=== PATIENT | female | born 1990 | race African-American/Black ===

== ENCOUNTER 2016-07-23 22:18 | Emergency (ER) | payer OTHER ==
[2016-07-23 22:39] LABS: #Basophils 0.1 thou/uL (0.0-0.2); #Lymphocytes 2.4 thou/uL (1.20-3.40); #Monocytes 0.2 thou/uL (0.11-0.59); #Neutrophils 6.3 thou/uL (1.40-6.50); %Lymphocytes 26.8 % (21.0-51.0); %Monocytes 2.1 % (0.0-10.0); Hematocrit 45.7 % (36.0-47.0); Mean Platelet Volume 7.9 fL (7.4-10.4); Red Blood Cell (RBC) Count 4.72 mill/uL (4.20-5.40); White Blood Cell (WBC) Count 8.9 thou/uL (4.8-10.8)
[2016-07-23] MEDS ORDERED: Lorazepam 2 MG/ML VIAL ONE (22:39)
[2016-07-23] MEDS ORDERED: Famotidine 20 MG TAB ONE (22:39)
[2016-07-23] MEDS ORDERED: Ketorolac Tromethamine 30 MG/ML VIAL ONE (22:39)
[2016-07-23] MEDS ORDERED: Ondansetron HCl/PF 4 MG/2 ML Vial ONE (22:39)
[2016-07-23] MEDS ORDERED: Famotidine/PF 20 mg/2ml Vial ONE (22:40)
[2016-07-23 22:45] LABS: Neutrophil 70 % (42-75)
[2016-07-23 23:00] LABS: ALT (SGPT) 18 U/L (0-55); AST (SGOT) 23 U/L (5-34); Alkaline Phosphatase 89 U/L (40-150); Amylase 60 U/L (25-125); Anion Gap 17 mmol/L (10-20); BUN (Urea Nitrogen) 7 mg/dL (7.0-18.7); Bilirubin, Total 0.2 mg/dL (0.2-1.2); Calc. Creatinine Clearance 0 mL/min (70-130); Calcium 10.5 mg/dL (7.8-10.44); Carbon Dioxide 23 mmol/L (22-29); Chloride 106 mmol/L (98-107); Estimated GFR-MDRD 90; Globulin 3.7 g/dL (2.4-3.5); Protein, Total 8.6 g/dL (6.0-8.3)
[2016-07-23 23:31] LABS: Bilirubin Negative (Negative); Blood, Urine Negative (Negative); Glucose, Urine (Dipstick) Negative (Negative); Ketone, Urine Negative (Negative); Nitrite Negative (Negative); Protein, Urine (Dipstick) 30 mg/dL (Neg-Trace); Urobilinogen 0.2 mg/dL (0.2-1.0)
[2016-07-23 23:32] LABS: Bacteria/HPF None Seen HPF (None Seen); RBC/HPF None Seen HPF (0-3); WBC/HPF None Seen HPF (0-3)
[2016-07-23 23:39] LABS: Methadone Not Detected (NotDetected); Methamphetamine Not Detected (NotDetected)
--- NOTE | 2016-07-24 00:11 | ERRECORD ---
[facility] EMERGENCY RECORD HPI NAUSEA/VOMITING/DIARRHEA (22:34 RW) CHIEF COMPLAINT: Patient presents for evaluation of nausea, Patient presents for evaluation of vomiting. HISTORIAN: History provided by patient. LOCATION FEMALE: No localizing symptoms. QUALITY: Unable to describe the quality of the pain. SEVERITY: Maximum severity of symptoms mild, Currently symptoms are mild, Maximum severity of pain rated as 9/10, Current severity of pain rated as 9/10. TIME COURSE: Patient unable to describe onset of symptoms, There has been no change in the patient's symptoms over time. ASSOCIATED WITH FEMALE: Associated with vomiting. EXACERBATED BY: Patient's condition exacerbated by nothing. RELIEVED BY: Patient's condition relieved by nothing. E/M CAVEAT: Emergency room caveat invoked due to, possible drug abuse. ROS (22:36 RW) CONSTITUTIONAL: Negative constitutional review of systems. EYES: Negative eye review of systems. ENT: Negative ears, nose, throat review of systems. CARDIOVASCULAR: Negative cardiovascular review of systems. RESPIRATORY: Negative respiratory review of systems. GI: Negative gastrointestinal review of systems. GENITOURINARY FEMALE: Negative genitourinary review of systems. MUSCULOSKELETAL: Negative musculoskeletal review of systems. SKIN: Negative skin review of systems. NEUROLOGIC: Negative neurologic review of systems. ENDOCRINE: Negative endocrine review of systems. HEMO/LYMPHATIC: Normal hematologic/lymphatic system review. ALLERGIC/IMMUNOLOGIC: Normal allergy/immunologic system review. PSYCHIATRIC: Negative psychiatric review of systems. NOTES: All systems reviewed, negative except as described above. PAST MEDICAL HISTORY (22:58 [facility]) MEDICAL HISTORY: Flu vaccine not up to date, Tetanus not up to date, Past medical history includes gastrointestinal disease, chronic constipation. Reviewed 07/23/15. FEMALE SURGICAL HISTORY: Surgical history of appendectomy. Reviewed 07/23/15. PSYCHIATRIC HISTORY: No previous psychiatric history. SOCIAL HISTORY: Social History includes lives with small child, Patient drinks socially, rarely, Patient denies drug use, Patient currently uses tobacco. FAMILY HISTORY: Family history is non-contributory to this case. KNOWN ALLERGIES Ultram: Reaction: Nausea, - states"blows up" &a-1R&a+25V*p+0X*x1477B*c202B*c15G*c2P*p-0X&a-25V&a+1R Name: Radha Prieto : 1990 F26 MedRec: [id number] AcctNum: [id number] Prepared: Tiff Jul 24, 2016 06:37 by Interface Page [address] [facility] EMERGENCY RECORD CURRENT MEDICATIONS (23:59 BHAS) None VITAL SIGNS VITAL SIGNS: BP: 191/80, Pulse: 87, Resp: 20, Pain: 9, O2 sat: 96 on Room Air, Time: 07/23/2016 22:22. (22:22 BHAS) Temp: 97.8 (Oral), Time: 07/23/2016 22:22. (22:22 BHAS) BP: 137/84, Pulse: 64, Resp: 18 (Non-Labored), O2 sat: 100 on Room Air, Time: 07/23/2016 22:50. (22:50 BHAS) Pain: 2, Time: 07/23/2016 23:15. (23:15 [facility]AS) BP: 128/76, Pulse: 67, Resp: 18 (Non-Labored), Temp: 98.2 (Oral), Pain: 0, O2 sat: 98 on Room Air, Time: 07/23/2016 23:30. (23:30 [facility]AS) PHYSICAL EXAM (22:36 RWAG) CONSTITUTIONAL: Vital signs reviewed, Blood pressure, hypertensive. HEAD: Head exam normal. EYES: Eye exam normal. ENT: ENT exam normal. NECK: Neck exam normal. RESPIRATORY CHEST: Respiratory and chest exam normal. CARDIOVASCULAR: Cardiovascular assessment normal. ABDOMEN FEMALE: Abdominal exam normal. BACK: Back exam normal. UPPER EXTREMITY: Upper extremity exam normal. LOWER EXTREMITY: Lower extremity exam normal. NEURO: Neuro exam normal. SKIN: Skin exam normal. LYMPHATIC: Lymphatic exam normal. PSYCHIATRIC: Psychiatric exam normal. MEDICATION ADMINISTRATION SUMMARY Drug Name: ketorolac injection, Dose Ordered: 30 mg, Route: IV Push, Status: Given, Time: 22:48 07/23/2016, Drug Name: Ativan injection, Dose Ordered: 2 mg, Route: IV Push, Status: Given, Time: 22:48 07/23/2016, Drug Name: ondansetron HCl intravenous, Dose Ordered: 8 mg, Route: IV Push, Status: Given, Time: 22:48 07/23/2016, Drug Name: famotidine (PF), Dose Ordered: 20 mg, Route: IV Push, Status: Given, Time: 22:48 07/23/2016, Detailed record available in Medication Service section. PROBLEM LIST No recorded problems DIAGNOSIS (23:50 RWAG) FINAL: PRIMARY: Nausea with vomiting. &a-1R&a+25V*p+0X*s0571C*c202B*c15G*c2P*p-0X&a-25V&a+1R Name: Radha Prieto : 1990 6 MedRec: [id number] AcctNum: [id number] Prepared: Tiff Jul 24, 2016 06:37 by Interface Page [address] [facility] EMERGENCY RECORD PRESCRIPTION (23:50 RWAG) Zofran ODT: TABLET,DISINTEGRATING : 8 mg : ORAL : Quantity: 1 Unit: tab(s) Route: ORAL Schedule: every 8 hours PRN Dispense: 10 Unit: tab(s) May substitute. Refills: No Refills . NOTES: No Refills. DISPOSITION PATIENT: Disposition Type: Discharge, Disposition: *Discharge Home, Disposition Transport: Car, Condition: Improved. (23:50 RWAG) Patient left the department. (Tiff Jul 24, 2016 00:04 [facility]) Shi: JOSE RAUL=BRADLEY Solis, Cameron RWAG=MD Zay, Willie &a-1R&a+25V*p+0X*n4720V*c202B*c15G*c2P*p-0X&a-25V&a+1R Name: Tony Prietoaleja Jensen : 1990 F26 MedRec: [id number] AcctNum: [id number] Prepared: Tiff Jul 24, 2016 06:37 by Interface Page 3 of 3 pMD MTDD
--- NOTE | 2016-07-24 00:20 | PICIS ---
[facility] EMERGENCY RECORD TRIAGE ([facility] Jul 23, 2016 22:24 BHAS) TRIAGE NOTES: N/V x 3 days with right sided abd pain/cramping. Actively vomiting upon arrival. ([facility] Jul 23, 2016 22:24 BHAS) PATIENT: NAME: Radha Prieto, AGE: 26, GENDER: female, : Mon1990, TIME OF GREET: Sat Jul 23, 2016 22:19, PREFERRED LANGUAGE: Italian, ETHNICITY: Not or , ECODE BILLING MAP: [facility] ER, SSN: [id number], Zip Code: [address], KG WEIGHT: 70.31, PHONE: , , , PERSON ID: [id number]. ([facility] Jul 23, 2016 22:24 BHAS) COMPLAINT: ABD PAIN; VOMITING. ([facility] Jul 23, 2016 22:24 BHAS) ADMISSION: URGENCY: 3 Urgent, ADMISSION SOURCE: Home, TRANSPORT: Walk-in, BED: ER -04. ([facility] Jul 23, 2016 22:24 BHAS) ASSESSMENT: Assessment: Pt c/o abd pain x 2 days with N/V., Symptoms began 07/21/2016 22:57. (22:58 BHAS) PAIN: Patient complains of pain described as, aching, on a scale 0-10 patient rates pain as 9, Location lower abd. (22:58 BHAS) TRIAGE SCREENING: Patient denies suicidal ideation, Patient denies presence of domestic violence. (22:58 AS) PROVIDERS: TRIAGE NURSE: Cameron Solis RN. ([facility] Jul 23, 2016 22:24 BHAS) VITAL SIGNS: BP 191/80, Pulse 87, Resp 20, Pain 9, O2 Sat 96, on Room Air, Time 07/23/2016 22:22. (22:22 BHAS) PREVIOUS VISIT ALLERGIES: Ultram. (Sat Jul 23, 2016 22:24 BHAS) Ultram. (22:58 BHAS) KNOWN ALLERGIES Ultram: Reaction: Nausea, - states"blows up" CURRENT MEDICATIONS (23:59 BHAS) None VITAL SIGNS VITAL SIGNS: BP: 191/80, Pulse: 87, Resp: 20, Pain: 9, O2 sat: 96 on Room Air, Time: 07/23/2016 22:22. (22:22 BHAS) Temp: 97.8 (Oral), Time: 07/23/2016 22:22. (22:22 BHAS) BP: 137/84, Pulse: 64, Resp: 18 (Non-Labored), O2 sat: 100 on Room Air, Time: 07/23/2016 22:50. (22:50 BHAS) Pain: 2, Time: 07/23/2016 23:15. (23:15 BHAS) BP: 128/76, Pulse: 67, Resp: 18 (Non-Labored), Temp: 98.2 (Oral), Pain: 0, O2 sat: 98 on Room Air, Time: 07/23/2016 23:30. (23:30 BHAS) NURSING ASSESSMENT: ABDOMEN (22:25 BHAS) CONSTITUTIONAL: Patient arrives ambulatory, Gait steady, History obtained from patient, Patient appears, in distress due to pain, restless, uncomfortable, Patient cooperative, Patient alert, Oriented to person, place and time, Skin warm, Skin dry, Skin normal in color, Mucous membranes pink, Mucous &a-1R&a+25V*p+0X*y4025Y*c202B*c15G*c2P*p-0X&a-25V&a+1R Name: Radha Prieto : 1990 F26 MedRec: [id number] AcctNum: [id number] Prepared: Tiff Jul 24, 2016 06:43 by Interface Page [address] [facility] EMERGENCY RECORD membranes moist, Patient is well-groomed, Patient complains of Abd pain; N/V, Pt c/o lower abd pain/cramping x 2 days along with N/V. Pt actively vomiting upon arrival. Pt very restless, difficulty keeping still during initial assessment. Family at bedside. PAIN: aching pain, cramping pain, to the left lower quadrant, to the right lower quadrant, Onset of pain 07/21/2016 23:01, on a scale 0-10 patient rates pain as 9. ABDOMEN: Abdomen assessment findings include abdomen symmetrical, Abdomen soft, tender, no pulsatile mass, no dullness with percussion, no resonance with percussion, Bowel sound normal, Associated with nausea, Associated with vomiting, currently, no associated diarrhea, no associated constipation, no associated weight change, no associated appetite change. LMP: First day last menstrual period, Last period started on 06/23/2016 23:01, Patient denies . GENITOURINARY FEMALE: Female genitourinary assessment findings include external genitalia normal. SAFETY: Side rails up, Cart/Stretcher in lowest position, Family at bedside, Call light within reach, Hospital ID band on. NURSING PROCEDURE: DISCHARGE NOTE ([place] Jul 24, 2016 00:00 BHAS) DISCHARGE: Patient discharged to home, ambulating without assistance, family driving, accompanied by //partner, Summary of Care printed/ provided, Transition record given to patient, Discharge instructions given to patient, Simple or moderate discharge teaching performed, by BRADLEY Barnes, Prescriptions given and instructions on side effects given, Above person(s) verbalized understanding of discharge instructions and follow-up care, Patient discharged by, BRADLEY Barnes, Patient treated and evaluated by physician, Notes: Pt's partner at bedside signed DC instructions stating that he is driving pt. BELONGINGS: Belongings and valuables with patient upon arrival to the Emergency Department include:, Belongings and valuables with patient at time of discharge include:, Belongings remain with patient, Valuables remain with patient. SAFETY: Side rails up, Cart/Stretcher in lowest position, Family at bedside, Call light within reach, Hospital ID band on. NURSING PROCEDURE: IV PATIENT IDENITIFIER: Patient actively involved in identification process, Patient's identity verified by patient stating name, Patient's identity verified by hospital ID bracelet. (22:45 AS) Patient actively involved in identification process, Patient's identity verified by patient stating name, Patient's identity verified by hospital ID bracelet. (23:59 [facility]) IV SITE 1: IV established, to the left antecubital, using a 20 gauge catheter, in one attempt, Saline lock established, Flushed with normal saline (mls): 10, Labs drawn at time of placement, labeled in &a-1R&a+25V*p+0X*c2294C*c202B*c15G*c2P*p-0X&a-25V&a+1R Name: Radha Prieto : 1990 F26 MedRec: [id number] AcctNum: [id number] Prepared: Tiff Jul 24, 2016 06:43 by Interface Page [address] [facility] EMERGENCY RECORD the presence of the patient and sent to lab. (22:45 BHAS) FOLLOW-UP SITE 1: After procedure, sterile dressing applied. (22:45 BHAS) After procedure, sterile dressing applied, IV discontinued, due to patient being discharged, catheter intact. (23:59 BHAS) SAFETY: Side rails up, Cart/Stretcher in lowest position, Family at bedside, Call light within reach, Hospital ID band on. (22:45 BHAS) NURSING PROCEDURE: NURSE NOTES NURSES NOTES: Notes: Given pt cup of water for PO challenge. Pt able to drink majority of water without difficulty; tolerated well. Denies N/V at this time. (23:30 BHAS) Notes: Pt states that pain has subsided at this time. (23:15 BHAS) NURSING PROCEDURE: URINE COLLECTION (23:20 BHAS) PATIENT IDENTIFIER: Patient actively involved in identification process, Patient's identity verified by patient stating name, Patient's identity verified by hospital ID bracelet. URINE COLLECTION FEMALE: Urine collected by mid-stream clean catch, Output amount (mL) 60, urine yellow in color, and clear, Specimen labeled in the presence of the patient and sent to lab, Specimen obtained for culture labeled in the presence of the patient and sent to lab. SAFETY: Side rails up, Cart/Stretcher in lowest position, Family at bedside, Call light within reach, Hospital ID band on. ORDER DETAILS Order Name: Alcohol, Status: Active, Time: 22:32 07/23/2016, User: MUNA, - Ordered for: MD Collazo Richard, - Entered by: MD Collazo Richard - Sat Jul 23, 2016 22:32, - Quantity: 1, Order Name: Amylase, Status: Active, Time: 22:31 07/23/2016, User: MUNA, - Ordered for: MD Collazo Richard, - Entered by: MD Collazo Richard - Sat Jul 23, 2016 22:31, - Quantity: 1, Order Name: CBC with Differential, Status: Active, Time: 22:31 07/23/2016, User: MUNA, - Ordered for: MD Collazo Richard, - Entered by: MD Collazo Richard - Sat Jul 23, 2016 22:31, - Quantity: 1, Order Name: Comprehensive Metabolic Panel, Status: Active, Time: 22:31 07/23/2016, User: MUNA, - Ordered for: MD Collazo Richard, - Entered by: MD Collazo Richard - Sat Jul 23, 2016 22:31, - Quantity: 1, &a-1R&a+25V*p+0X*v2729M*c202B*c15G*c2P*p-0X&a-25V&a+1R Name: Radha Prieto : 1990 F26 MedRec: [id number] AcctNum: [id number] Prepared: Tiff Jul 24, 2016 06:43 by Interface Page [address] [facility] EMERGENCY RECORD Order Name: Drug Screen, Urine, Status: Active, Time: 22:32 07/23/2016, User: MUNA, - Ordered for: MD Collazo Richard, - Entered by: MD Collazo Richard - Sat Jul 23, 2016 22:32, - Quantity: 1, Order Name: Test, Urine (BHCG), Status: Active, Time: 22:31 07/23/2016, User: MUNA, - Ordered for: MD Collazo Richard, - Entered by: MD Collazo Richard - Sat Jul 23, 2016 22:31, - Quantity: 1, Order Name: SALINE LOCK, Status: Done, Time: 22:58 07/23/2016, User: [facility], - Ordered for: MD Collazo Richard, - Entered by: MD Collazo Richard - Sat Jul 23, 2016 22:31, - Quantity: 1, Order Name: Urinalysis with Microscopic, Status: Active, Time: 22:31 07/23/2016, User: MUNA, - Ordered for: MD Collazo Richard, - Entered by: MD Collazo Richard - Sat Jul 23, 2016 22:31, - Quantity: 1. MEDICATION ADMINISTRATION SUMMARY Drug Name: ketorolac injection, Dose Ordered: 30 mg, Route: IV Push, Status: Given, Time: 22:48 07/23/2016, Drug Name: Ativan injection, Dose Ordered: 2 mg, Route: IV Push, Status: Given, Time: 22:48 07/23/2016, Drug Name: ondansetron HCl intravenous, Dose Ordered: 8 mg, Route: IV Push, Status: Given, Time: 22:48 07/23/2016, Drug Name: famotidine (PF), Dose Ordered: 20 mg, Route: IV Push, Status: Given, Time: 22:48 07/23/2016, Detailed record available in Medication Service section. MEDICATION SERVICE (22:48 [facility]) Ativan injection: Order: Ativan injection (lorazepam) - Dose: 2 mg : IV Push Schedule: Now Ordered by: Willie Collazo MD Entered by: Willie Collazo MD Sat Jul 23, 2016 22:34 , Acknowledged by: Cameron Solis RN Sat Jul 23, 2016 22:38 Documented as given by: Cameron Solis RN Sat Jul 23, 2016 22:48 Patient, Medication, Dose, Route and Time verified prior to administration. Verbal order read back and verified, Amount given: 2mg, IV SITE #1 IVP, initial medication, Slowly, Awake and alert- acceptable, Catheter placement confirmed via flush prior to administration, IV site without signs or symptoms of infiltration during medication administration, No swelling during administration, No drainage during administration, IV flushed after administration, Correct patient, time, route, dose and medication confirmed prior to administration, &a-1R&a+25V*p+0X*n0847Q*c202B*c15G*c2P*p-0X&a-25V&a+1R Name: Radha Prieto : 1990 F26 MedRec: [id number] AcctNum: [id number] Prepared: Tiff Jul 24, 2016 06:43 by Interface Page [address] [facility] EMERGENCY RECORD Patient advised of actions and side-effects prior to administration, Allergies confirmed and medications reviewed prior to administration, Patient tolerated procedure well, Patient in position of comfort, Side rails up, Cart in lowest position, Family at bedside. famotidine (PF): Order: famotidine (PF) (famotidine/preservative free) - Dose: 20 mg : IV Push Schedule: Now Ordered by: Willie Collazo MD Entered by: Willie Collazo MD Sat Jul 23, 2016 22:33 , Acknowledged by: Cameron Solis RN Sat Jul 23, 2016 22:38 Documented as given by: Cameron Solis RN Sat Jul 23, 2016 22:48 Patient, Medication, Dose, Route and Time verified prior to administration. Amount given: 20mg, IV SITE #1 IVP, subsequent different medication, Slowly, Catheter placement confirmed via flush prior to administration, IV site without signs or symptoms of infiltration during medication administration, No swelling during administration, No drainage during administration, IV flushed after administration, Correct patient, time, route, dose and medication confirmed prior to administration, Patient advised of actions and side-effects prior to administration, Allergies confirmed and medications reviewed prior to administration, Patient tolerated procedure well, Patient in position of comfort, Side rails up, Cart in lowest position, Family at bedside. ketorolac injection: Order: ketorolac injection (ketorolac tromethamine) - Dose: 30 mg : IV Push Schedule: Now Ordered by: Willie Collazo MD Entered by: Willie Collazo MD Sat Jul 23, 2016 22:33 , Acknowledged by: Cmaeron Solis RN Sat Jul 23, 2016 22:38 Documented as given by: Cameron Solis RN Sat Jul 23, 2016 22:48 Patient, Medication, Dose, Route and Time verified prior to administration. Amount given: 30mg, IV SITE #1 IVP, subsequent different medication, Slowly, Catheter placement confirmed via flush prior to administration, IV site without signs or symptoms of infiltration during medication administration, No swelling during administration, No drainage during administration, IV flushed after administration, Correct patient, time, route, dose and medication confirmed prior to administration, Patient advised of actions and side-effects prior to administration, Allergies confirmed and medications reviewed prior to administration, Patient tolerated procedure well, Patient in position of comfort, Side rails up, Cart in lowest position, Family at bedside. ondansetron HCl intravenous: Order: ondansetron HCl intravenous (ondansetron HCl) - Dose: 8 mg : IV Push Schedule: Now Ordered by: Willie Collazo MD Entered by: Willie Collazo MD Sat Jul 23, 2016 22:33 , Acknowledged by: Cameron Solis RN Sat Jul 23, 2016 22:38 &a-1R&a+25V*p+0X*y4617E*c202B*c15G*c2P*p-0X&a-25V&a+1R Name: Radha Prieto : 1990 F26 MedRec: [id number] AcctNum: [id number] Prepared: Tiff Jul 24, 2016 06:43 by Interface Page [address] [facility] EMERGENCY RECORD Documented as given by: Cameron Solis RN Sat Jul 23, 2016 22:48 Patient, Medication, Dose, Route and Time verified prior to administration. Verbal order read back and verified, Amount given: 8mg, IV SITE #1 IVP, subsequent different medication, Slowly, Catheter placement confirmed via flush prior to administration, IV site without signs or symptoms of infiltration during medication administration, No swelling during administration, No drainage during administration, IV flushed after administration, Correct patient, time, route, dose and medication confirmed prior to administration, Patient advised of actions and side-effects prior to administration, Allergies confirmed and medications reviewed prior to administration, Patient tolerated procedure well, Patient in position of comfort, Side rails up, Cart in lowest position, Family at bedside. HPI NAUSEA/VOMITING/DIARRHEA (22:34 RW) CHIEF COMPLAINT: Patient presents for evaluation of nausea, Patient presents for evaluation of vomiting. HISTORIAN: History provided by patient. LOCATION FEMALE: No localizing symptoms. QUALITY: Unable to describe the quality of the pain. SEVERITY: Maximum severity of symptoms mild, Currently symptoms are mild, Maximum severity of pain rated as 9/10, Current severity of pain rated as 9/10. TIME COURSE: Patient unable to describe onset of symptoms, There has been no change in the patient's symptoms over time. ASSOCIATED WITH FEMALE: Associated with vomiting. EXACERBATED BY: Patient's condition exacerbated by nothing. RELIEVED BY: Patient's condition relieved by nothing. E/M CAVEAT: Emergency room caveat invoked due to, possible drug abuse. ROS (22:36 RWAG) CONSTITUTIONAL: Negative constitutional review of systems. EYES: Negative eye review of systems. ENT: Negative ears, nose, throat review of systems. CARDIOVASCULAR: Negative cardiovascular review of systems. RESPIRATORY: Negative respiratory review of systems. GI: Negative gastrointestinal review of systems. GENITOURINARY FEMALE: Negative genitourinary review of systems. MUSCULOSKELETAL: Negative musculoskeletal review of systems. SKIN: Negative skin review of systems. NEUROLOGIC: Negative neurologic review of systems. ENDOCRINE: Negative endocrine review of systems. HEMO/LYMPHATIC: Normal hematologic/lymphatic system review. ALLERGIC/IMMUNOLOGIC: Normal allergy/immunologic system review. PSYCHIATRIC: Negative psychiatric review of systems. NOTES: All systems reviewed, negative except as described above. &a-1R&a+25V*p+0X*a0393Y*c202B*c15G*c2P*p-0X&a-25V&a+1R Name: Radha Prieto : 1990 F26 MedRec: [id number] AcctNum: [id number] Prepared: Tiff Jul 24, 2016 06:43 by Interface Page [address] [facility] EMERGENCY RECORD PAST MEDICAL HISTORY (22:58 BHAS) MEDICAL HISTORY: Flu vaccine not up to date, Tetanus not up to date, Past medical history includes gastrointestinal disease, chronic constipation. Reviewed 07/23/15. FEMALE SURGICAL HISTORY: Surgical history of appendectomy. Reviewed 07/23/15. PSYCHIATRIC HISTORY: No previous psychiatric history. SOCIAL HISTORY: Social History includes lives with small child, Patient drinks socially, rarely, Patient denies drug use, Patient currently uses tobacco. FAMILY HISTORY: Family history is non-contributory to this case. PHYSICAL EXAM (22:36 RWAG) CONSTITUTIONAL: Vital signs reviewed, Blood pressure, hypertensive. HEAD: Head exam normal. EYES: Eye exam normal. ENT: ENT exam normal. NECK: Neck exam normal. RESPIRATORY CHEST: Respiratory and chest exam normal. CARDIOVASCULAR: Cardiovascular assessment normal. ABDOMEN FEMALE: Abdominal exam normal. BACK: Back exam normal. UPPER EXTREMITY: Upper extremity exam normal. LOWER EXTREMITY: Lower extremity exam normal. NEURO: Neuro exam normal. SKIN: Skin exam normal. LYMPHATIC: Lymphatic exam normal. PSYCHIATRIC: Psychiatric exam normal. EVENTS TRANSFER: Triage to Emergency Emergency Room -04. ([facility] Jul 23, 2016 22:24 BHAS) Removed from Emergency Emergency Room -04. ([place] [place] Jul 24, 2016 00:04 BHAS) PROBLEM LIST No recorded problems DIAGNOSIS (23:50 RWAG) FINAL: PRIMARY: Nausea with vomiting. DISPOSITION PATIENT: Disposition Type: Discharge, Disposition: *Discharge Home, Disposition Transport: Car, Condition: Improved. (23:50 RWAG) Patient left the department. ([place] Jul 24, 2016 00:04 BHAS) INSTRUCTION (23:51 RWAG) DISCHARGE: NAUSEA VOMITING 5YADULT. FOLLOWUP: Follow up with Primary Care Physician in 2-3 days. &a-1R&a+25V*p+0X*z4176D*c202B*c15G*c2P*p-0X&a-25V&a+1R Name: Radha Prieto : 1990 F26 MedRec: [id number] AcctNum: [id number] Prepared: [place] [facility] Jul 24, 2016 06:43 by Interface Page [address] [facility] EMERGENCY RECORD SPECIAL: Follow-up with your PCP. PRESCRIPTION (23:50 RWAG) Zofran ODT: TABLET,DISINTEGRATING : 8 mg : ORAL : Quantity: 1 Unit: tab(s) Route: ORAL Schedule: every 8 hours PRN Dispense: 10 Unit: tab(s) May substitute. Refills: No Refills . NOTES: No Refills. IMAGING ([place] Jul 24, 2016 00:03 [facility]) *DISCHARGE INSTRUCTIONS RECEIPT: Image captured from scanner. *SUPPLY CHARGE SHEET: Image captured from scanner. ADMIN ([facility] Jul 24, 2016 06:33 RW) DIGITAL SIGNATURE: MD Collazo Richard. RESULTS (23:49 RW) LABORATORY: Drug Screen, Urine Collection DT: [facility] Jul 23, 2016 23:27, *THC/Cannabinoid Screen Detected - H , Range (NotDetected), Phencyclidine (PCP) Not Detected , Range (NotDetected), *Cocaine Metabolite Screen Detected - H , Range (NotDetected), Methamphetamine Not Detected , Range (NotDetected), *Opiate Screen Detected - H , Range (NotDetected), Amphetamine Not Detected , Range (NotDetected), Benzodiazepine Screen Not Detected , Range (NotDetected), Tricyclic Screen Not Detected , Range (NotDetected), Methadone Not Detected , Range (NotDetected), Barbiturates Screen Not Detected , Range (NotDetected), Oxycodone Screen Not Detected , Range (NotDetected), Propoxyphene Screen Not Detected , Range (NotDetected), Drug Screen Cutoff , Range (), The [place] Profile-V Panel for Qualitative Drugs of Abuse assays are for, presumptive screening testing only. The drug class and detection limits, are as follows: Drug Class Detection Limit Amphetamine , 500 ng/mL* Barbiturates 200 ng/mL , Benzodiazepines 150 ng/mL* Cocaine 150 ng/mL*, Methamphetamine 500 ng/mL* Methadone 200, ng/mL* Opiates 100 ng/mL* Oxycodone , 100 ng/mL PCP 25 ng/mL Propoxyphene , 300 ng/mL Tricyclic Antidepressants 300 ng/mL Cannabinoids (THC) , 50 ng/mL &a-1R&a+25V*p+0X*n0769H*c202B*c15G*c2P*p-0X&a-25V&a+1R Name: Radha Prieto : 1990 F26 MedRec: [id number] AcctNum: [id number] Prepared: Tiff Jul 24, 2016 06:43 by Interface Page 8 of 11 [facility] EMERGENCY RECORD Tests which yield a presumptive positive result must be , tested using a more specific alternate chemical method in order to obtain, a confirmed analytical result. Additional confirmation and identification, may be ordered on a routine basis, if desired. Presumptive positive urines, are held for two weeks. . Test, Urine (BHCG) Collection DT: [facility] Jul 23, 2016 23:27, Test - Urine (BHCG) NEGATIVE , Range (NEGATIVE), Method of sensitivity- Indeterminant: results should be repeated, after 48 hours. Positive: results may be detected as early as 4-5 days before a first missed menses. Elimination of BHCG-, Elimination following first trimester D&C: 29-44 Days , Elimination following term : 8-24 Days , Specific [place] 1.020 , Range (1.002-1.036), A dilute urine specimen may, not contain employee representative levels of hCG. If is still, suspected, a first morning urine specimen OR a random blood specimen should, be obtained from the patient 48-72 hours later and re-tested. , . Urinalysis with Microscopic Collection DT: [facility] Jul 23, 2016 23:27, Color Yellow , Range (Yellow), Clarity Clear , Range (Clear), Specific [place], Urine 1.020 , Range (1.005-1.030), pH, Urine 8.5 , Range (5.0-9.0), Leukocyte Negative , Range (Negative), Nitrite Negative , Range (Negative), *Protein, Urine (Dipstick) 30 - H mg/dL, Range (Neg-Trace), Glucose, Urine (Dipstick) Negative mg/dL, Range (Negative), Ketone, Urine Negative mg/dL, Range (Negative), Urobilinogen 0.2 mg/dL, Range (0.2-1.0), Bilirubin Negative , Range (Negative), Blood, Urine Negative , Range (Negative), RBC/HPF None Seen HPF, Range (0-3), WBC/HPF None Seen HPF, Range (0-3), *Squamous Epithelial 4-6 - H HPF, Range (0-3), Bacteria/HPF None Seen HPF, Range (None Seen). Alcohol Collection DT: [facility] Jul 23, 2016 22:38, Alcohol Less than 10 mg/dL, Range (Less than 10), The pharmacological response to blood alcohol levels may vary from, individual to individual. &a-1R&a+25V*p+0X*j5004A*c202B*c15G*c2P*p-0X&a-25V&a+1R Name: Radha Prieto : 1990 F26 MedRec: [id number] AcctNum: [id number] Prepared: Tiff Jul 24, 2016 06:43 by Interface Page [address] [facility] EMERGENCY RECORD Negative: Less than 10, mg/dL Toxic: 50 - 100 mg/dL , Depression of LINING [employer]ER: Greater than 100 mg/dL , Fatalities reported: Greater than 400 mg/dL . Amylase Collection DT: [facility] Jul 23, 2016 22:38, Amylase 60 U/L, Range (25-125). Comprehensive Metabolic Panel Collection DT: [facility] Jul 23, 2016 22:38, Sodium 142 mmol/L, Range (136-145), Potassium 4.1 mmol/L, Range (3.5-5.1), Chloride 106 mmol/L, Range (98-107), Carbon Dioxide 23 mmol/L, Range (22-29), Anion Gap 17 mmol/L, Range (10-20), BUN (Urea Nitrogen) 7 mg/dL, Range (7.0-18.7), Creatinine 0.91 mg/dL, Range (0.6-1.1), Estimated GFR-MDRD 90 , Reference Range for Estimated GFR: Greater than 90, mL/min/1.73 m2 NOTE: The MDRD equation has not been validated for use, with the elderly (over 70 years of age), women, patients with, serious comorbid condition or persons with extremes of body size, muscle, mass, or nutritional status. , *Glucose 140 - H mg/dL, Range (70-105), *Calcium 10.5 - H mg/dL, Range (7.8-10.44), Bilirubin, Total 0.2 mg/dL, Range (0.2-1.2), *Protein, Total 8.6 - H g/dL, Range (6.0-8.3), NOTE: Plasma values are generally 0.3 to 0.5 g/dL higher than serum values, due to the presence of fibrinogen. , Albumin 4.9 g/dL, Range (3.5-5.0), *Globulin 3.7 - H g/dL, Range (2.4-3.5), Alb/Glob Ratio 1.3 g/dL, Range (1.2-2.2), Alkaline Phosphatase 89 U/L, Range (40-150), AST (SGOT) 23 U/L, Range (5-34), ALT (SGPT) 18 U/L, Range (0-55). CBC with Differential Collection DT: [facility] Jul 23, 2016 22:38, White Blood Cell (WBC) Count 8.9 thou/uL, Range (4.8-10.8), Red Blood Cell (RBC) Count 4.72 mill/uL, Range (4.20-5.40), Hemoglobin 14.8 g/dL, Range (12.0-16.0), Hematocrit 45.7 %, Range (36.0-47.0), Mean Corpuscular Volume 96.9 fl, Range (81.0-99.0), *Mean Corpuscular Hemoglobin 31.4 - H pg, Range (27.0-31.0), Mean Corpuscular HGB CONC 32.4 g/dL, Range (32.0-36.0), RBC Distribution Width 12.1 %, Range (11.5-14.5), Platelet Count 272 thou/uL, Range (130-400), Mean Platelet Volume 7.9 fL, Range (7.4-10.4), &a-1R&a+25V*p+0X*c5654D*c202B*c15G*c2P*p-0X&a-25V&a+1R Name: Radha Prieto : 1990 F26 MedRec: [id number] AcctNum: [id number] Prepared: Tiff Jul 24, 2016 06:43 by Interface Page [address] [facility] EMERGENCY RECORD %Neutrophils 70.0 %, Range (42.0-75.0), %Lymphocytes 26.8 %, Range (21.0-51.0), %Monocytes 2.1 %, Range (0.0-10.0), %Eosinophils 0.0 %, Range (0.0-10.0), %Basophils 1.0 %, Range (0.0-1.0), #Neutrophils 6.3 thou/uL, Range (1.40-6.50), #Lymphocytes 2.4 thou/uL, Range (1.20-3.40), #Monocytes 0.2 thou/uL, Range (0.11-0.59), #Eosinphils 0.0 thou/uL, Range (0.0-0.7), #Basophils 0.1 thou/uL, Range (0.0-0.2), Neutrophil 70 %, Range (42-75), Lymphocytes 27 %, Range (21-51), Monocytes 2 %, Range (0-10), Basophils 1 %, Range (0-2), PLT Morphology Comment Appears Adequate . Shi: BHJOSE RAUL=BRADLEY Solis, Cameron RWAG=MD Zay, Willie &a-1R&a+25V*p+0X*q6714P*c202B*c15G*c2P*p-0X&a-25V&a+1R Name: Radha Prieto : 1990 F26 MedRec: [id number] AcctNum: [id number] Prepared: Tiff Jul 24, 2016 06:43 by Interface Page 11 of 11 pMD MTDD
== END 2016-07-24 | disposition home or self-care (01) ==
LOC: NAV ERS 22:18
DX: R11.2 Nausea with vomiting, unspecified (principal); Z90.49 Acquired absence of other specified parts of digestive tract
CPT/HCPCS: 36415; 80053; 80307; 81001; 81025; 82150; 85025; 96374; 96375; G0478; G0479; J1885; J2060; J2405; S0028

== ENCOUNTER 2016-07-25 07:54 | Emergency (ER) | payer OTHER ==
[2016-07-25] MEDS ORDERED: Iopamidol 370 76% 100 ML VIAL ONE (09:00)
[2016-07-25 09:06] LABS: #Basophils 0.1 thou/uL (0.0-0.2); #Lymphocytes 2.4 thou/uL (1.20-3.40); #Monocytes 0.4 thou/uL (0.11-0.59); #Neutrophils 4.8 thou/uL (1.40-6.50); %Basophils 1.3 % (0.0-1.0); %Eosinophils 0.6 % (0.0-10.0); %Lymphocytes 31.1 % (21.0-51.0); %Monocytes 5.4 % (0.0-10.0); Hematocrit 45.6 % (36.0-47.0); Mean Platelet Volume 7.2 fL (7.4-10.4); Red Blood Cell (RBC) Count 4.63 mill/uL (4.20-5.40); White Blood Cell (WBC) Count 7.7 thou/uL (4.8-10.8)
[2016-07-25] MEDS ORDERED: Ondansetron HCl/PF 4 MG/2 ML Vial ONE (09:45)
[2016-07-25 09:50] LABS: Troponin I 0.011 ng/mL (< 0.028)
[2016-07-25 09:52] LABS: ALT (SGPT) 17 U/L (0-55); AST (SGOT) 32 U/L (5-34); Alkaline Phosphatase 79 U/L (40-150); Anion Gap 15 mmol/L (10-20); BUN (Urea Nitrogen) 10 mg/dL (7.0-18.7); Bilirubin, Total 0.3 mg/dL (0.2-1.2); Calc. Creatinine Clearance 0 mL/min (70-130); Calcium 9.8 mg/dL (7.8-10.44); Carbon Dioxide 20 mmol/L (22-29); Chloride 109 mmol/L (98-107); Estimated GFR-MDRD 73; Globulin 3.6 g/dL (2.4-3.5); Lipase 33 U/L (8-78); Protein, Total 8.3 g/dL (6.0-8.3)
[2016-07-25] MEDS ORDERED: Lidocaine Viscous Sol 2% 15 ml UD Cup ONE (09:57)
[2016-07-25] MEDS ORDERED: Mag-Al Plus 1200 MG/1200 MG/120 MG/30 ML UDCUP ONE (09:57)
--- NOTE | 2016-07-25 10:03 | RAD ---
PORTABLE CHEST ONE VIEW: History: 26-year-old female with abdominal pain, gastroesophageal reflux disease, and hypertension with nausea, vomiting, and diarrhea and primarily epigastric abdominal pain. Comparison: 06-15-13. FINDINGS: Heart size is normal. The lungs are clear. IMPRESSION: No acute intrathoracic disease. Stable from prior study. POS: KYLE
[2016-07-25 10:31] LABS: Blood, Urine Negative (Negative); Glucose, Urine (Dipstick) Negative (Negative); Ketone, Urine 40 mg/dL (Negative); Nitrite Negative (Negative); Protein, Urine (Dipstick) Negative (Neg-Trace)
[2016-07-25 10:37] LABS: Bilirubin Negative (Negative)
[2016-07-25 10:39] LABS: Bacteria/HPF Rare-Few HPF (None Seen); RBC/HPF None Seen HPF (0-3); Squamous Epithelial 0-3 HPF (0-3); WBC/HPF 0-3 HPF (0-3)
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
--- NOTE | 2016-07-25 11:46 | ERRECORD ---
[facility] EMERGENCY RECORD HPI ABDOMINAL PAIN (08:25 ALIM) CHIEF COMPLAINTS: Patient presents for evaluation of abdominal pain. HISTORIAN: History provided by patient, 26 y/o female with GERD and HTN, asthma, presenting with 3 days epigastric abdominal pain, n/v, and diarrhea. No fever, headache, CP, dyspnea. +dysuria. LOCATION FEMALE: Symptoms are localized, most severe in the epigastrium, no radiation. QUALITY: Pain is dull in nature. SEVERITY: Maximum severity of symptoms moderate, Currently symptoms are moderate. TIME COURSE: Gradual onset of symptoms, Symptoms are intermittent, There has been no change in the patient's symptoms over time. ASSOCIATED WITH FEMALE: Associated with constipation, Associated with nausea, Associated with vomiting. RELIEVED BY: Patient's condition relieved by water. EXACERBATED BY: Patient's condition exacerbated by nothing. ROS (08:32 ALIM) CONSTITUTIONAL: Negative constitutional review of systems, Historian denies chills, denies fever. EYES: Negative eye review of systems, Historian denies eye pain, denies eye redness. ENT: Negative ears, nose, throat review of systems, Historian denies rhinorrhea, denies sore throat. CARDIOVASCULAR: Negative cardiovascular review of systems, Historian denies chest pain, no radiation, Historian denies syncope. RESPIRATORY: Negative respiratory review of systems, Historian denies cough, denies shortness of breath. GI: Historian reports abdominal pain, reports constipation, reports nausea, reports vomiting. GENITOURINARY FEMALE: Historian reports dysuria, reports frequency. MUSCULOSKELETAL: Negative musculoskeletal review of systems, Historian denies back pain, denies injury, denies neck pain. SKIN: Negative skin review of systems, Historian denies rash, denies skin changes. NEUROLOGIC: Negative neurologic review of systems, Historian denies dizziness, denies focal weakness, denies headache. PSYCHIATRIC: Negative psychiatric review of systems, Historian denies alcohol abuse, denies anxiety, denies depression. NOTES: All systems reviewed, negative except as described above. PAST MEDICAL HISTORY MEDICAL HISTORY: Flu vaccine not up to date, Tetanus not up to date, Past medical history includes gastrointestinal disease, chronic constipation. Reviewed 07/23/15. (09:53 ALIM) Flu vaccine not up to date, Tetanus not up to date, Flu vaccine not up to date, Tetanus not up to date, Past medical &a-1R&a+25V*p+0X*f4119T*c202B*c15G*c2P*p-0X&a-25V&a+1R Name: Radha Prieto : 1990 F26 MedRec: [id number] AcctNum: [id number] Prepared: Meagan Jul 26, 2016 02:23 by Interface Page 1 of 5 pMD [facility] EMERGENCY RECORD history includes gastrointestinal disease, chronic constipation. Allergy medication daily for unknown allergy (cough, congestion). Reviewed 07/23/15. (10:14 GHIA) FEMALE SURGICAL HISTORY: Surgical history of appendectomy. Reviewed 07/23/15. (09:53 ALIM) Surgical history of appendectomy. Reviewed 07/23/15. (10:14 GHIA) PSYCHIATRIC HISTORY: No previous psychiatric history. (09:53 ALIM) No previous psychiatric history. (10:14 GHIA) SOCIAL HISTORY: Social History includes lives with small child, Patient drinks socially, rarely, Patient denies drug use, pos for cocaine 07/23/2016. Patient currently uses tobacco. (09:53 ALIM) Patient drinks socially, every week, Patient is a former drug user, abused marijuana, Drug history notes: denies current use, Patient currently uses tobacco, smokes cigarettes, Occasional or some day smoker, Patient smokes ocassionally, Social History includes lives with small child, Patient drinks socially, rarely, Patient denies drug use, Patient currently uses tobacco. (10:14 GHIA) FAMILY HISTORY: Family history is non-contributory to this case. (09:53 ALIM) Maternal history of HIV, mother 2 years ago. pt. is not certain but "pretty sure it was HIV - it was a bad virus for sure". (10:14 GHIA) NOTES: Nursing records reviewed, Agree with nursing records, Medication list reviewed, I have reviewed and agree with nursing PMH, PSH, social history, and FH. (08:32 ALIM) KNOWN ALLERGIES Ultram: Reaction: Nausea, - states"blows up" CURRENT MEDICATIONS Zofran ODT: TABLET,DISINTEGRATING : Strength - 8 mg : ORAL Patient Dose: 1 tab(s) Oral every 8 hours PRN. (MonJul 25, 2016 08:23 BELE) Protonix: TABLET, DELAYED RELEASE (ENTERIC COATED) : Strength - 20 mg : ORAL Patient Dose: Unknown. (08:24 BELE) albuterol: AEROSOL (GRAM) : Strength - 90 mcg : INHALATION Patient Dose: 2 puff(s) Oral As Needed. (08:25 BELE) NAME ? LIQ. MED FOR COUGH AND CONGESTION TAKES W/ ALBUTEROL (08:27 BELE) VITAL SIGNS VITAL SIGNS: BP: 132/86 (Lying), Pulse: 89 (Regular), Resp: 20 (Non-Labored), Temp: 97.5 (Oral), Pain: 8 (Intermittent), O2 sat: 95 &a-1R&a+25V*p+0X*v9734M*c202B*c15G*c2P*p-0X&a-25V&a+1R Name: Radha Prieto : 1990 F26 MedRec: [id number] AcctNum: [id number] Prepared: MonJul 26, 2016 02:23 by Interface Page 2 of 5 pMD [facility] EMERGENCY RECORD on Room Air, Time: 07/25/2016 08:13. (08:13 BELE) BP: 128/77, Pulse: 59, Resp: 17, Pain: 6, O2 sat: 100 on Room Air, Time: 07/25/2016 09:53. (09:53 GHIA) BP: 128/77 (Lying), Pulse: 65 (Regular), Resp: 20 (Non-Labored), Pain: 8 (Sharp), O2 sat: 98 on Room Air, Time: 07/25/2016 10:01. (10:01 GHIA) Pain: 0, Time: 07/25/2016 10:39. (10:39 BELE) BP: 126/80, Pulse: 61, Resp: 17, Pain: 0, O2 sat: 99 on Room Air, Time: 07/25/2016 11:10. (11:10 GHIA) BP: 126/80, Pulse: 62, Resp: 17, Pain: 0, O2 sat: 100 on Ra, Time: 07/25/2016 11:24. (11:24 GHIA) PHYSICAL EXAM (08:32 ALIM) CONSTITUTIONAL: Vital Signs Reviewed, Patient afebrile, Pulse normal, Blood pressure normal, Respiratory rate normal, Patient appears non toxic, Patient appears, in moderate pain distress, Patient alert and oriented to person, place and time, Nursing notes reviewed. HEAD: Head exam normal, Head exam included findings of head atraumatic, normocephalic. EYES: Eye exam normal, Eye exam included findings of eyelids normal to inspection, Pupils equally round and reactive to light, Extraocular muscles intact. ENT: ENT exam normal, Ear exam normal, Nose exam normal, Pharynx exam normal. NECK: Neck exam normal, Neck exam included findings of normal range of motion, Trachea midline. RESPIRATORY CHEST: Respiratory and chest exam normal, Respiratory exam included findings of no respiratory distress, Breath sounds clear, No wheezing. CARDIOVASCULAR: Cardiovascular assessment normal, Cardiovascular exam included findings of heart rate regular rate and rhythm, Heart sounds normal. ABDOMEN FEMALE: Abdominal exam normal, Abdominal exam included findings of abdomen tender, to the epigastric region, to the right upper quadrant, moderate intensity. BACK: Back exam normal, Back exam included findings of normal inspection, range of motion normal. UPPER EXTREMITY: Upper extremity exam normal, Upper extremity exam included findings of inspection normal, Range of motion normal. LOWER EXTREMITY: Lower extremity exam normal, Lower extremity exam included findings of inspection normal, Range of motion normal. NEURO: Neuro exam normal, [place] coma scale 15, Neuro exam findings include patient oriented to person, place and time, Speech normal, Gait normal. SKIN: Skin exam normal, Skin exam included findings of skin warm, dry, and normal in color. PSYCHIATRIC: Psychiatric exam normal, Psychiatric exam included findings of patient oriented to person place and time, Normal affect, Judgment normal. &a-1R&a+25V*p+0X*v1320W*c202B*c15G*c2P*p-0X&a-25V&a+1R Name: Radha Prieto : 1990 F26 MedRec: [id number] AcctNum: [id number] Prepared: Meagan Jul 26, 2016 02:23 by Interface Page 3 of 5 pMD [facility] EMERGENCY RECORD EKG INTERPRETATION (10:31 ALIM) 12 LEAD EKG INTERPRETATION: 12 lead EKG interpreted by Emergency Department Physician at time of study, 12 lead EKG shows normal sinus rhythm, Conduction with, ST segments normal, T waves normal, Ransom normal, Incomplete RBBB. MEDICATION ADMINISTRATION SUMMARY Drug Name: GI COCKTAIL- GREEN, Dose Ordered: 40 mL, Route: Oral, Status: Given, Time: 10:05 07/25/2016, Drug Name: Zofran intravenous, Dose Ordered: 4 mg, Route: IV Push, Status: Given, Time: 09:49 07/25/2016, Drug Name: sodium chloride 0.9 % intravenous, Dose Ordered: 1000 mL, Route: IV Fluid Infusion, Status: Given, Time: 09:35 07/25/2016, Detailed record available in Medication Service section. DOCTOR NOTES (11:17 ALIM) RE-EVALUATION: Labs wnl. CT a/p largely wnl except some free fluid in pelvis. Pt denied any vaginal discharge or pelvic pain. Pt states that the epigastric pain was almost completely relieved after the gi cocktail. DC with meds for gastritis vs ulcer and PCP follow-up. PROBLEM LIST No recorded problems DIAGNOSIS (11:16 ALIM) FINAL: PRIMARY: ACUTE GASTRITIS WITHOUT BLEEDING, ADDITIONAL: DEHYDRATION, EPIGASTRIC ABDOMINAL TENDERNESS, EPIGASTRIC PAIN, Nausea with vomiting. PRESCRIPTION Lodine: CAPSULE : 300 mg : ORAL : Quantity: 300 Unit: mg Route: ORAL Schedule: every 8 hours PRN Dispense: 20 Unit: tab(s) May substitute. Refills: No Refills . (10:45 ALIM) NOTES: No Refills. (10:45 ALIM) Zofran ODT: TABLET,DISINTEGRATING : 4 mg : ORAL : Quantity: 4 Unit: mg Route: ORAL Schedule: every 6 hours PRN Dispense: 10 May substitute. Refills: No Refills . (10:45 ALIM) NOTES: ^s=No Refills No Refills. (10:45 ALIM) NexIUM: CAPSULE,DELAYED RELEASE (ENTERIC COATED) : 40 mg : ORAL : Quantity: 40 Unit: mg Route: ORAL Schedule: once a day Dispense: 20 Unit: tab(s) May substitute. Refills: No Refills . (10:46 ALIM) NOTES: No Refills. (10:46 ALIM) Bentyl oral: TABLET : 20 mg : ORAL : Quantity: 20 Unit: &a-1R&a+25V*p+0X*a9230V*c202B*c15G*c2P*p-0X&a-25V&a+1R Name: Radha Prieto : 1990 6 MedRec: [id number] AcctNum: [id number] Prepared: MonJul 26, 2016 02:23 by Interface Page 4 of 5 pMD [facility] EMERGENCY RECORD mg Route: ORAL Schedule: every 6 hours PRN Dispense: 20 May substitute. Refills: No Refills . (11:07 ALIM) NOTES: No Refills. (11:07 ALIM) Carafate: SUSPENSION, ORAL (FINAL DOSE FORM) : 1 gram/10 mL : ORAL : Quantity: 10 Unit: mL Route: ORAL Schedule: 3 times a day (before meals) Dispense: 120 Unit: mL May substitute. Refills: No Refills . (11:17 ALIM) NOTES: No Refills. (11:17 ALIM) DISPOSITION PATIENT: Disposition Type: Discharge, Disposition: *Discharge Home. (11:15 ALIM) Patient left the department. (11:36 CHUCKY) Shi: CHERI=MD Callum, Tiburcio HE=BRADLEY Chung, Alley MILLS=BRADLEY Smith, Lolis LOCKE=BRADLEY Arias, Jed &a-1R&a+25V*p+0X*c7881W*c202B*c15G*c2P*p-0X&a-25V&a+1R Name: Radha Prieto : 1990 F26 MedRec: [id number] AcctNum: [id number] Prepared: MonJul 26, 2016 02:23 by Interface Page 5 of 5 pMD MTDD
--- NOTE | 2016-07-25 11:49 | PICIS ---
[facility] EMERGENCY RECORD TRIAGE (MonJul 25, 2016 08:23 BEL) TRIAGE NOTES: ABDOMINAL PAIN AND VOMITING REPORTED SINCE MONDAY, 07/23 AND HAS CONTINUED SINCE THEN. (MonJul 25, 2016 08:23 BEL) PATIENT: NAME: Radha Prieto, AGE: 26, GENDER: female, : Mon1990, TIME OF GREET: MonJul 25, 2016 07:54, PREFERRED LANGUAGE: Moroccan, ETHNICITY: Not or , ECODE BILLING MAP: [facility], SSN: [id number], Zip Code: [address], KG WEIGHT: 68.04 (est.), HEIGHT/LENGTH: 172.72cm, BMI: 22.81, PHONE: , , , PERSON ID: [id number], PCP: DR. FOWLER. (MonJul 25, 2016 08:23 BEL) COMPLAINT: ABD PAIN/VOMITING. (MonJul 25, 2016 08:23 BELE) ADMISSION: URGENCY: 3 Urgent, ADMISSION SOURCE: Home, TRANSPORT: CAR, BED: ER -03. (MonJul 25, 2016 08:23 BEL) ASSESSMENT: Assessment: alert, moderately distressed female vomited in waiting room and reports abdominal pain and vomiting since Monday., Symptoms began 07/23/2016 10:08. (10:14 GHIA) PAIN: Patient complains of pain described as, sharp, on a scale 0-10 patient rates pain as 8, Location upper, mid abdomen pain. Describes as sharp and radiated to right side of upper abdomen "like grabbing". Intensity increased with coughing., Pain is intermittent. (10:14 GHIA) SIRS SCORING: Heart Rate 55-109 (0), Temp range 96.8-101.1 (0), respiratory rate 12-24 (0), Latest WBC 3-14.9 (0), Mental Status altered: no (0), Total SIRS Score 0, Infection or Suspected Infection: No. (10:14 GHIA) LMP: Last menstrual period: 07/10/2016, P: 1, AB: 1. (10:14 GHIA) TREATMENTS IN PROGRESS: Treatments given Prehospital: motrin, tylenol and zofran taken about 5 a.m. (10:14 GHIA) PROVIDERS: TRIAGE NURSE: Alley Chung RN. (MonJul 25, 2016 08:23 BELE) VITAL SIGNS: BP 132/86, (Lying), Pulse 89, (Regular), Resp 20, (Non-Labored), Temp 97.5, (Oral), Pain 8, (Intermittent), O2 Sat 95, on Room Air, Time 07/25/2016 08:13. (08:13 BELE) BP 128/77, (Lying), Pulse 65, (Regular), Resp 20, (Non-Labored), Pain 8, (Sharp), O2 Sat 98, on Room Air, Time 07/25/2016 10:01. (10:01 GHIA) PREVIOUS VISIT ALLERGIES: Ultram. (MonJul 25, 2016 08:23 BELE) Ultram. (10:14 GHIA) KNOWN ALLERGIES Ultram: Reaction: Nausea, - states"blows up" CURRENT MEDICATIONS Zofran ODT: TABLET,DISINTEGRATING : Strength - 8 mg : ORAL Patient Dose: 1 tab(s) Oral every 8 hours PRN. (MonJul 25, 2016 08:23 BELE) Protonix: &a-1R&a+25V*p+0X*e4129Z*c202B*c15G*c2P*p-0X&a-25V&a+1R Name: Radha Prieto : 1990 F26 MedRec: [id number] AcctNum: [id number] Prepared: Meagan Jul 26, 2016 02:27 by Interface Page 1 of 14 pMD [facility] EMERGENCY RECORD TABLET, DELAYED RELEASE (ENTERIC COATED) : Strength - 20 mg : ORAL Patient Dose: Unknown. (08:24 BELE) albuterol: AEROSOL (GRAM) : Strength - 90 mcg : INHALATION Patient Dose: 2 puff(s) Oral As Needed. (08:25 BELE) NAME ? LIQ. MED FOR COUGH AND CONGESTION TAKES W/ ALBUTEROL (08:27 BELE) VITAL SIGNS VITAL SIGNS: BP: 132/86 (Lying), Pulse: 89 (Regular), Resp: 20 (Non-Labored), Temp: 97.5 (Oral), Pain: 8 (Intermittent), O2 sat: 95 on Room Air, Time: 07/25/2016 08:13. (08:13 BELE) BP: 128/77, Pulse: 59, Resp: 17, Pain: 6, O2 sat: 100 on Room Air, Time: 07/25/2016 09:53. (09:53 GHIA) BP: 128/77 (Lying), Pulse: 65 (Regular), Resp: 20 (Non-Labored), Pain: 8 (Sharp), O2 sat: 98 on Room Air, Time: 07/25/2016 10:01. (10:01 GHIA) Pain: 0, Time: 07/25/2016 10:39. (10:39 BELE) BP: 126/80, Pulse: 61, Resp: 17, Pain: 0, O2 sat: 99 on Room Air, Time: 07/25/2016 11:10. (11:10 GHIA) BP: 126/80, Pulse: 62, Resp: 17, Pain: 0, O2 sat: 100 on Ra, Time: 07/25/2016 11:24. (11:24 GHIA) NURSING ASSESSMENT: ABDOMEN (10:27 BELE) CONSTITUTIONAL: Patient arrives ambulatory, Gait steady, History obtained from patient, Patient cooperative, Patient alert, Oriented to person, place and time, Skin warm, Skin dry, Skin normal in color, Mucous membranes pink, Mucous membranes moist, Patient complains of ABDOMINAL PAIN, VOMITING, PATIENT IS TEARFUL, REPORTS INTERMITTENT BUT CONTINUOUS PAIN SINCE BEING SEEN IN ER FOR SAME ON SUNDAY 07/23. PAIN: sharp pain, to the epigastric region, POINTS TO EPIGASTRIC AREA., Pain radiates, to the right flank, "LIKE GRABBING PAIN" TO MY SIDE. NONVERBAL PAIN: Non Verbal pain assessment findings include: Non-verbal expressions of pain at rest (1), Facial Grimaces present at rest (1), Result: 2. ABDOMEN: Abdomen assessment findings include abdomen symmetrical, Scars, to LOWER MID ABDOMEN AND LUQ., SMALL, HEALED SCARS PT. REPORTS ARE D/T PRIOR APPENDECTOMY., Associated with nausea, Associated with vomiting, currently, Number of times: 4 - AND AGAIN IN WAITING ROOM., vomiting yellow fluid, APPROX 250CC OF EMESIS. GENITOURINARY FEMALE: Notes: YANNICK DYSURIA. NOTES: Notes: PT. IS VERY EMOTIONAL AND ANXIOUS. COMFORTED AND PROVIDED INFORMATION TO CALM. SAFETY: Side rails up, Cart/Stretcher in lowest position, Call light within reach, Hospital ID band on, Patient in view of the nursing station. &a-1R&a+25V*p+0X*h1375P*c202B*c15G*c2P*p-0X&a-25V&a+1R Name: Radha Prieto : 1990 F26 MedRec: [id number] AcctNum: [id number] Prepared: Meagan Jul 26, 2016 02:27 by Interface Page 2 of 14 pMD [facility] EMERGENCY RECORD NURSING PROCEDURE: DISCHARGE NOTE (11:24 GHIA) DISCHARGE: Patient discharged to home, ambulating without assistance, patient walking, unaccompanied, Summary of Care printed/ provided, Transition record given to patient, Discharge instructions given to patient, Simple or moderate discharge teaching performed, Prescriptions given and instructions on side effects given, Above person(s) verbalized understanding of discharge instructions and follow-up care. BELONGINGS: Belongings remain with patient, Valuables remain with patient. SAFETY: Notes: Pt cheerful and talkative. Pt tolerating PO water without any difficulty. VITAL SIGNS: BP: 126, / 80, Pulse: 62, Resp: 17, Pain: 0, O2 sat: 100, on: Ra. NURSING PROCEDURE: IV PATIENT IDENITIFIER: Patient actively involved in identification process, Patient's identity verified by patient stating name, Patient's identity verified by hospital ID bracelet. (09:23 GHIA) Patient actively involved in identification process, Patient's identity verified by patient stating name, Patient's identity verified by hospital ID bracelet. (11:17 GHIA) IV SITE 1: IV established, to the left hand, using a 22 gauge catheter, in two attempts, IV site prepped with chloraprep. (09:23 GHIA) FOLLOW-UP SITE 1: After procedure, 2x3 ensure dressing applied, After procedure, no swelling at IV site, After procedure, no redness at IV site. (09:23 GHIA) IV discontinued, due to patient being discharged, catheter intact. (11:17 GHIA) NOTES: Emotional support needed and given, Patient tolerated procedure well, Notes: one prev attempt by me to left AC...unsuccessful for iv but blood drawn for lab. (09:23 GHIA) Patient tolerated procedure well. (11:17 GHIA) NURSING PROCEDURE: NURSE NOTES NURSES NOTES: Notes: Report from Alley HUERTA. (09:02 GHIA) Patient in no apparent distress, Assistance offered to patient, Patient is awaiting results. (09:15 GHIA) Patient assisted to bathroom with steady gait, Patient in no apparent distress, Assistance offered to patient. (09:50 GHIA) Patient in no apparent distress, Assistance offered to patient, Patient is awaiting results, Notes: Pt back in bed resting; connected to bedside monitor tech. Call light in reach. (09:54 GHIA) Patient in no apparent distress, Assistance offered to patient, Patient is awaiting results, Notes: Nurse Alley Rn at bedside obtaining pt history. (10:06 GHIA) Notes: Pt to CT. (10:35 GHIA) Notes: PATIENT'S ABDOMEN IS SOFT, TENDER WHEN PALPATING UPPER RIGHT TO MID UPPER ABDOMEN. (10:35 BELE) &a-1R&a+25V*p+0X*z2174K*c202B*c15G*c2P*p-0X&a-25V&a+1R Name: Radha Prieto : 1990 F26 MedRec: [id number] AcctNum: [id number] Prepared: MonJul 26, 2016 02:27 by Interface Page 3 of 14 pMD [facility] EMERGENCY RECORD Notes: PATIENT REPORTS ALLEVIATION OF ABDOMEN PAIN SINCE TAKING GI COCKTAIL. IS NOW RELAXED, SMILING WITH CONVERSATION. (10:39 BELE) Notes: Follow up report from Alley Huerta...pt still in CT. (10:40 GHIA) Patient in no apparent distress, Assistance offered to patient, Patient is awaiting results, Notes: pt back in room; resting. (10:45 GHIA) Notes: Er Dr at bedside. (11:09 GHIA) VITAL SIGNS: Pain: 0. (10:39 BELE) ORDER DETAILS Order Name: Cardiac Profile w/CKMB & Troponin - I, Status: Active, Time: 08:25 07/25/2016, User: CHERI, - Ordered for: MD Nolen Arthur, - Entered by: MD Nolen Arthur - [facility] Jul 25, 2016 08:25, - Quantity: 1, Order Name: CBC with Differential, Status: Active, Time: 08:25 07/25/2016, User: CHERI, - Ordered for: MD Nolen Arthur, - Entered by: MD Nolen Arthur - [facility] Jul 25, 2016 08:25, - Quantity: 1, Order Name: Comprehensive Metabolic Panel, Status: Active, Time: 08:25 07/25/2016, User: CHERI, - Ordered for: MD Nolen Arthur, - Entered by: MD Nolen Arthur - [facility] Jul 25, 2016 08:25, - Quantity: 1, Order Name: CT Abdomen Pelvis W Con, Status: Active, Time: 08:25 07/25/2016, User: CHERI, - Ordered for: MD Nolen Arthur, - Entered by: MD Nolen Arthur - [facility] Jul 25, 2016 08:25, - Quantity: 1, Order Name: EKG 12 Lead in Emergency Room, Status: Active, Time: 08:25 07/25/2016, User: CHERI, - Ordered for: MD Nolen Arthur, - Entered by: MD Nolen Arthur - [facility] Jul 25, 2016 08:25, - Quantity: 1, Order Name: Influenza A&B Ag Screen, Status: Canceled, Time: 09:43 07/25/2016, User: GENE, - Ordered for: MD Nolen Arthur, - Entered by: MD Nolen Arthur - [facility] Jul 25, 2016 08:25, - Reason for Cancel: per VOv Dr Nolen, - Quantity: 1, Order Name: Lipase, Status: Active, Time: 08:25 07/25/2016, User: CHERI, - Ordered for: MD Noeln Arthur, - Entered by: MD Nolen Arthur - [facility] Jul 25, 2016 08:25, - Quantity: 1, Order Name: Test, Urine (BHCG), Status: Active, Time: 08:25 07/25/2016, User: CHERI, &a-1R&a+25V*p+0X*z7621T*c202B*c15G*c2P*p-0X&a-25V&a+1R Name: Radha Prieto : 1990 F26 MedRec: [id number] AcctNum: [id number] Prepared: MonJul 26, 2016 02:27 by Interface Page 4 of 14 pMD [facility] EMERGENCY RECORD - Ordered for: MD Nolen Arthur, - Entered by: MD Nolen Arthur - [place] Jul 25, 2016 08:25, - Quantity: 1, Order Name: SALINE LOCK, Status: Done, Time: 09:32 07/25/2016, User: GENE, - Ordered for: MD Nolen Arthur, - Entered by: MD Nolen Arthur - [place] Jul 25, 2016 08:25, - Quantity: 1, Order Name: Urinalysis with Microscopic, Status: Active, Time: 08:25 07/25/2016, User: CHERI, - Ordered for: MD Nolen Arthur, - Entered by: MD Nolen Arthur - [facility] Jul 25, 2016 08:25, - Quantity: 1, Order Name: XR Chest 1 View Portable, Status: Active, Time: 08:25 07/25/2016, User: CHERI, - Ordered for: MD Nolen Arthur, - Entered by: MD Nolen Arthur - [facility] Jul 25, 2016 08:25, - Quantity: 1. MEDICATION ADMINISTRATION SUMMARY Drug Name: GI COCKTAIL- GREEN, Dose Ordered: 40 mL, Route: Oral, Status: Given, Time: 10:05 07/25/2016, Drug Name: Zofran intravenous, Dose Ordered: 4 mg, Route: IV Push, Status: Given, Time: 09:49 07/25/2016, Drug Name: sodium chloride 0.9 % intravenous, Dose Ordered: 1000 mL, Route: IV Fluid Infusion, Status: Given, Time: 09:35 07/25/2016, Detailed record available in Medication Service section. MEDICATION SERVICE GI COCKTAIL- GREEN: Order: GI COCKTAIL- GREEN - Dose: 40 mL : Oral (phenobarbital/hyoscyamine sulfate/atropine sulfate/scopolamine hydrobromide) [10 mL] Lidocaine Viscous (lidocaine HCl) [10 mL] MAG-AL (magnesium hydroxide/aluminum hydroxide) [20 mL] Ordered by: Tiburcio Nolen MD Entered by: Tiburcio Nolen MD MonJul 25, 2016 08:28 , Acknowledged by: Lolis Smith RN MonJul 25, 2016 09:45 Documented as given by: Lolis Smith RN MonJul 25, 2016 10:05 Patient, Medication, Dose, Route and Time verified prior to administration. Amount given: 30 ml, Amount wasted: 0, Site: Medication administered P.O., Correct patient, time, route, dose and medication confirmed prior to administration, Patient advised of actions and side-effects prior to administration, Allergies confirmed and medications reviewed prior to administration, Emotional support needed and given, Patient tolerated procedure well, Patient in position of comfort, Side rails up, Cart in lowest position, Family at bedside, Call light in reach, Per Er Dr Nolen...no needed in this dose., &a-1R&a+25V*p+0X*u6695X*c202B*c15G*c2P*p-0X&a-25V&a+1R Name: ConnerSamrenita Jensen : 1990 F26 MedRec: [id number] AcctNum: [id number] Prepared: MonJul 26, 2016 02:27 by Interface Page 5 of 14 pMD [facility] EMERGENCY RECORD Co-signed by: Tiburcio Nolen MD MonJul 26, 2016 02:19. : Follow Up : Response assessment performed, No signs or symptoms of allergic reaction noted, Decreased pain. (11:02 GHIA) sodium chloride 0.9 % intravenous: Order: sodium chloride 0.9 % intravenous (0.9 % sodium chloride) - Dose: 1000 mL : IV Fluid Infusion Schedule: Now Ordered by: Tiburcio Nolen MD Entered by: Tiburcio Nolen MD MonJul 25, 2016 08:27 , Acknowledged by: Lolis Smith RN MonJul 25, 2016 09:44 Documented as given by: Lolis Smith RN MonJul 25, 2016 09:35 Patient, Medication, Dose, Route and Time verified prior to administration. Amount given: 1000 ml, IV SITE #1 IV fluids established for hydration, IV SITE #1 into left hand, IV SITE #1 1st bag hung, amount 1 Liter hung, IV SITE #1 bolus of 1000 ml established, via primary tubing, IV SITE #1 on IV pump, Awake and alert- acceptable, Catheter placement confirmed via flush prior to administration, IV site without signs or symptoms of infiltration during medication administration, No swelling during administration, No drainage during administration, IV flushed after administration, Correct patient, time, route, dose and medication confirmed prior to administration, Patient advised of actions and side-effects prior to administration, Allergies confirmed and medications reviewed prior to administration, Emotional support needed and given, Patient tolerated procedure well, Patient in position of comfort, Side rails up, Cart in lowest position, Family at bedside, Call light in reach. : Follow Up : Response assessment performed, No signs or symptoms of allergic reaction noted, Decreased pain, Decreased symptoms, _IV SITE #1:_, IV fluid infusion discontinued, on MonJul 25, 2016 11:00, Total fluid hydration time IV site 1 1 hour, 25 minutes, ., Total amount infused: 1000ml. (10:55 GHIA) Zofran intravenous: Order: Zofran intravenous (ondansetron HCl) - Dose: 4 mg : IV Push Schedule: Now Ordered by: Tiburcio Nolen MD Entered by: Tiburcio Nolen MD MonJul 25, 2016 08:27 , Acknowledged by: Lolis Smith RN MonJul 25, 2016 09:45 Documented as given by: Lolis Smith RN MonJul 25, 2016 09:49 Patient, Medication, Dose, Route and Time verified prior to administration. Amount given: 4 mg, Amount wasted: 0, Awake and alert- acceptable, Catheter placement confirmed via flush prior to administration, IV site without signs or symptoms of infiltration during medication administration, No swelling during administration, No drainage during administration, IV flushed after administration, Correct patient, time, route, dose and medication confirmed prior to administration, Patient advised of actions and side-effects prior to administration, &a-1R&a+25V*p+0X*x1540C*c202B*c15G*c2P*p-0X&a-25V&a+1R Name: Radha Prieto : 1990 F26 MedRec: [id number] AcctNum: [id number] Prepared: donald Jul 26, 2016 02:27 by Interface Page 6 of 14 pMD [facility] EMERGENCY RECORD Allergies confirmed and medications reviewed prior to administration, Emotional support needed and given, Patient tolerated procedure well, Patient in position of comfort, Side rails up, Cart in lowest position, Family at bedside, Call light in reach. HPI ABDOMINAL PAIN (08:25 ALIM) CHIEF COMPLAINTS: Patient presents for evaluation of abdominal pain. HISTORIAN: History provided by patient, 26 y/o female with GERD and HTN, asthma, presenting with 3 days epigastric abdominal pain, n/v, and diarrhea. No fever, headache, CP, dyspnea. +dysuria. LOCATION FEMALE: Symptoms are localized, most severe in the epigastrium, no radiation. QUALITY: Pain is dull in nature. SEVERITY: Maximum severity of symptoms moderate, Currently symptoms are moderate. TIME COURSE: Gradual onset of symptoms, Symptoms are intermittent, There has been no change in the patient's symptoms over time. ASSOCIATED WITH FEMALE: Associated with constipation, Associated with nausea, Associated with vomiting. RELIEVED BY: Patient's condition relieved by water. EXACERBATED BY: Patient's condition exacerbated by nothing. ROS (08:32 ALIM) CONSTITUTIONAL: Negative constitutional review of systems, Historian denies chills, denies fever. EYES: Negative eye review of systems, Historian denies eye pain, denies eye redness. ENT: Negative ears, nose, throat review of systems, Historian denies rhinorrhea, denies sore throat. CARDIOVASCULAR: Negative cardiovascular review of systems, Historian denies chest pain, no radiation, Historian denies syncope. RESPIRATORY: Negative respiratory review of systems, Historian denies cough, denies shortness of breath. GI: Historian reports abdominal pain, reports constipation, reports nausea, reports vomiting. GENITOURINARY FEMALE: Historian reports dysuria, reports frequency. MUSCULOSKELETAL: Negative musculoskeletal review of systems, Historian denies back pain, denies injury, denies neck pain. SKIN: Negative skin review of systems, Historian denies rash, denies skin changes. NEUROLOGIC: Negative neurologic review of systems, Historian denies dizziness, denies focal weakness, denies headache. PSYCHIATRIC: Negative psychiatric review of systems, Historian denies alcohol abuse, denies anxiety, denies depression. NOTES: All systems reviewed, negative except as described above. PAST MEDICAL HISTORY &a-1R&a+25V*p+0X*d2006I*c202B*c15G*c2P*p-0X&a-25V&a+1R Name: Radha Prieto : 1990 F26 MedRec: [id number] AcctNum: [id number] Prepared: Meagan Jul 26, 2016 02:27 by Interface Page 7 of 14 pMD [facility] EMERGENCY RECORD MEDICAL HISTORY: Flu vaccine not up to date, Tetanus not up to date, Past medical history includes gastrointestinal disease, chronic constipation. Reviewed 07/23/15. (09:53 ALIM) Flu vaccine not up to date, Tetanus not up to date, Flu vaccine not up to date, Tetanus not up to date, Past medical history includes gastrointestinal disease, chronic constipation. Allergy medication daily for unknown allergy (cough, congestion). Reviewed 07/23/15. (10:14 GHIA) FEMALE SURGICAL HISTORY: Surgical history of appendectomy. Reviewed 07/23/15. (09:53 ALIM) Surgical history of appendectomy. Reviewed 07/23/15. (10:14 GHIA) PSYCHIATRIC HISTORY: No previous psychiatric history. (09:53 ALIM) No previous psychiatric history. (10:14 GHIA) SOCIAL HISTORY: Social History includes lives with small child, Patient drinks socially, rarely, Patient denies drug use, pos for cocaine 07/23/2016. Patient currently uses tobacco. (09:53 ALIM) Patient drinks socially, every week, Patient is a former drug user, abused marijuana, Drug history notes: denies current use, Patient currently uses tobacco, smokes cigarettes, Occasional or some day smoker, Patient smokes ocassionally, Social History includes lives with small child, Patient drinks socially, rarely, Patient denies drug use, Patient currently uses tobacco. (10:14 GHIA) FAMILY HISTORY: Family history is non-contributory to this case. (09:53 ALIM) Maternal history of HIV, mother 2 years ago. pt. is not certain but "pretty sure it was HIV - it was a bad virus for sure". (10:14 GHIA) NOTES: Nursing records reviewed, Agree with nursing records, Medication list reviewed, I have reviewed and agree with nursing PMH, PSH, social history, and FH. (08:32 ALIM) PHYSICAL EXAM (08:32 ALIM) CONSTITUTIONAL: Vital Signs Reviewed, Patient afebrile, Pulse normal, Blood pressure normal, Respiratory rate normal, Patient appears non toxic, Patient appears, in moderate pain distress, Patient alert and oriented to person, place and time, Nursing notes reviewed. HEAD: Head exam normal, Head exam included findings of head atraumatic, normocephalic. EYES: Eye exam normal, Eye exam included findings of eyelids normal to inspection, Pupils equally round and reactive to light, Extraocular muscles intact. ENT: ENT exam normal, Ear exam normal, Nose exam normal, Pharynx exam normal. NECK: Neck exam normal, Neck exam included findings of normal range of motion, Trachea midline. &a-1R&a+25V*p+0X*f4379Y*c202B*c15G*c2P*p-0X&a-25V&a+1R Name: Sam Prietorenita Jensen : 1990 F26 MedRec: [id number] AcctNum: [id number] Prepared: Meagan Jul 26, 2016 02:27 by Interface Page 8 of 14 pMD [facility] EMERGENCY RECORD RESPIRATORY CHEST: Respiratory and chest exam normal, Respiratory exam included findings of no respiratory distress, Breath sounds clear, No wheezing. CARDIOVASCULAR: Cardiovascular assessment normal, Cardiovascular exam included findings of heart rate regular rate and rhythm, Heart sounds normal. ABDOMEN FEMALE: Abdominal exam normal, Abdominal exam included findings of abdomen tender, to the epigastric region, to the right upper quadrant, moderate intensity. BACK: Back exam normal, Back exam included findings of normal inspection, range of motion normal. UPPER EXTREMITY: Upper extremity exam normal, Upper extremity exam included findings of inspection normal, Range of motion normal. LOWER EXTREMITY: Lower extremity exam normal, Lower extremity exam included findings of inspection normal, Range of motion normal. NEURO: Neuro exam normal, Jaspreet coma scale 15, Neuro exam findings include patient oriented to person, place and time, Speech normal, Gait normal. SKIN: Skin exam normal, Skin exam included findings of skin warm, dry, and normal in color. PSYCHIATRIC: Psychiatric exam normal, Psychiatric exam included findings of patient oriented to person place and time, Normal affect, Judgment normal. LAB INTERPRETATION (08:32 ALIM) INTERPRETATION: I reviewed the lab results, All labs normal except as noted below, Lab results have been reviewed and are attached to this chart. EVENTS TRANSFER: Triage to Emergency Emergency Room -03. (08:23 BELE) Removed from Emergency Emergency Room -03. (11:36 JPAR) EKG INTERPRETATION (10:31 ALIM) 12 LEAD EKG INTERPRETATION: 12 lead EKG interpreted by Emergency Department Physician at time of study, 12 lead EKG shows normal sinus rhythm, Conduction with, ST segments normal, T waves normal, [facility] normal, Incomplete RBBB. DOCTOR NOTES (11:17 ALIM) RE-EVALUATION: Labs wnl. CT a/p largely wnl except some free fluid in pelvis. Pt denied any vaginal discharge or pelvic pain. Pt states that the epigastric pain was almost completely relieved after the gi cocktail. DC with meds for gastritis vs ulcer and PCP follow-up. ATTENDING (08:32 ALIM) ATTENDING: The documented history was done by me personally, The documented physical exam was done by me personally, The documented &a-1R&a+25V*p+0X*g0198G*c202B*c15G*c2P*p-0X&a-25V&a+1R Name: Radha Prieto : 1990 F26 MedRec: [id number] AcctNum: [id number] Prepared: Meagan Jul 26, 2016 02:27 by Interface Page 9 of 14 pMD [facility] EMERGENCY RECORD procedures were done by me personally, I have personally seen and examined this patient. I have fully participated in the care of this patient. I have reviewed all pertinent clinical information, including history, physical exam and plan. PROBLEM LIST No recorded problems DIAGNOSIS (11:16 ALIM) FINAL: PRIMARY: ACUTE GASTRITIS WITHOUT BLEEDING, ADDITIONAL: DEHYDRATION, EPIGASTRIC ABDOMINAL TENDERNESS, EPIGASTRIC PAIN, Nausea with vomiting. DISPOSITION PATIENT: Disposition Type: Discharge, Disposition: *Discharge Home. (11:15 ALIM) Patient left the department. (11:36 JPAR) INSTRUCTION (11:17 ALIM) DISCHARGE: GASTRITIS (ADULT), GASTRITIS VS. ULCER. SPECIAL: Follow-up with your primary care physician in 2-3 days for reevaluation. Please review the instructions and educational material provided for you. Return to the Emergency Center if you have worsening symptoms not controlled by medication, or if you have chest pain, shortness of breath, nausea and vomiting that cannot be controlled, or any other medical concerns. PRESCRIPTION Lodine: CAPSULE :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
== END 2016-07-25 11:24 | disposition home or self-care (01) ==
LOC: NAV ERS 07:54
DX: K29.00 Acute gastritis without bleeding (principal); E86.0 Dehydration; I10 Essential (primary) hypertension; F17.210 Nicotine dependence, cigarettes, uncomplicated
CPT/HCPCS: 71010; 74177; 80053; 81001; 81025; 82553; 83690; 84484; 85025; 93005; 96361; 96374; J2405

== ENCOUNTER 2016-07-27 08:28 | Emergency (ER) | payer OTHER ==
[2016-07-27] MEDS ORDERED: Sodium Chloride 0.9% 1,000 ML ONE (09:05)
[2016-07-27] MEDS ORDERED: Ondansetron HCl/PF 4 MG/2 ML Vial ONE (09:05)
[2016-07-27] MEDS ORDERED: Dicyclomine HCl 20 mg/2 ml Ampule ONE (09:08)
[2016-07-27] MEDS ORDERED: Mag-Al Plus 1200 MG/1200 MG/120 MG/30 ML UDCUP ONE (09:09)
[2016-07-27] MEDS ORDERED: Lidocaine Viscous Sol 2% 15 ml UD Cup ONE (09:09)
[2016-07-27 09:24] LABS: Bilirubin Negative (Negative); Blood, Urine Negative (Negative); Glucose, Urine (Dipstick) Negative (Negative); Ketone, Urine Negative (Negative); Nitrite Negative (Negative); Protein, Urine (Dipstick) Negative (Neg-Trace); Urobilinogen 0.2 mg/dL (0.2-1.0)
[2016-07-27 09:33] LABS: Bacteria/HPF Rare-Few HPF (None Seen); RBC/HPF None Seen HPF (0-3); WBC/HPF 0-3 HPF (0-3)
[2016-07-27 09:41] LABS: #Basophils 0.1 thou/uL (0.0-0.2); #Lymphocytes 2.1 thou/uL (1.20-3.40); #Monocytes 0.4 thou/uL (0.11-0.59); #Neutrophils 4.5 thou/uL (1.40-6.50); %Basophils 1.9 % (0.0-1.0); %Eosinophils 0.6 % (0.0-10.0); %Lymphocytes 29.4 % (21.0-51.0); %Monocytes 4.9 % (0.0-10.0); Hematocrit 42.9 % (36.0-47.0); Mean Platelet Volume 7.4 fL (7.4-10.4); Red Blood Cell (RBC) Count 4.36 mill/uL (4.20-5.40); White Blood Cell (WBC) Count 7.1 thou/uL (4.8-10.8)
[2016-07-27 09:44] LABS: ALT (SGPT) 15 U/L (0-55); AST (SGOT) 19 U/L (5-34); Alkaline Phosphatase 73 U/L (40-150); Anion Gap 12 mmol/L (10-20); BUN (Urea Nitrogen) 9 mg/dL (7.0-18.7); Bilirubin, Total 0.4 mg/dL (0.2-1.2); Calc. Creatinine Clearance 0 mL/min (70-130); Calcium 9.2 mg/dL (7.8-10.44); Carbon Dioxide 24 mmol/L (22-29); Chloride 108 mmol/L (98-107); Estimated GFR-MDRD Greater than 90; Globulin 2.8 g/dL (2.4-3.5); Lipase 33 U/L (8-78); Protein, Total 7.1 g/dL (6.0-8.3)
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
--- NOTE | 2016-07-27 10:26 | PICIS ---
[facility] EMERGENCY RECORD TRIAGE (MonJul 27, 2016 08:35 EPIE) TRIAGE NOTES: Pt states that she has been here 3 times here recently. States she has been taking prescribed medications. Pt reports nausea and vomiting along with abdominal pain. Pt states she has epigastric pain that radiated to her abdomen. Reports multiple vomiting since 0500. (MonJul 27, 2016 08:35 EPIE) PATIENT: NAME: Radha Prieto, AGE: 26, GENDER: female, : Mon1990, TIME OF GREET: MonJul 27, 2016 08:28, PREFERRED LANGUAGE: Portuguese, ETHNICITY: Not or , ECODE BILLING MAP: [facility], SSN: [id number], Zip Code: [address], KG WEIGHT: 68.04, PHONE: , , , PERSON ID: [id number], PCP: Jose E Vernon. (MonJul 27, 2016 08:35 EPIE) COMPLAINT: ABDOMINAL PAIN. (MonJul 27, 2016 08:35 EPIE) ADMISSION: URGENCY: 3 Urgent, ADMISSION SOURCE: Home, TRANSPORT: CAR, BED: TRIAGE. (MonJul 27, 2016 08:35 EPIE) TRIAGE SCREENING: Patient denies suicidal ideation, Patient denies presence of domestic violence. (08:38 EPIE) TREATMENTS IN PROGRESS: Treatments given Prehospital: all prescribed medication (unknown). (08:38 EPIE) PROVIDERS: TRIAGE NURSE: Marjan Hoyos RN. (MonJul 27, 2016 08:35 EPIE) VITAL SIGNS: BP 131/80, Pulse 61, Resp 18, (Non-Labored), Temp 97.0, (Oral), Pain 9, O2 Sat 100, on Room Air, Time 07/27/2016 08:33. (08:33 EPIE) PREVIOUS VISIT ALLERGIES: Ultram. (MonJul 27, 2016 08:35 EPIE) Ultram. (08:38 EPIE) KNOWN ALLERGIES Ultram: Reaction: Nausea, - states"blows up" CURRENT MEDICATIONS (08:36 EPIE) Unknown albuterol: AEROSOL (GRAM) : Strength - 90 mcg : INHALATION Patient Dose: 2 puff(s) Oral As Needed. Lodine: CAPSULE : Strength - 300 mg : ORAL Patient Dose: 300 mg Oral every 8 hours PRN. Zofran ODT: TABLET,DISINTEGRATING : Strength - 4 mg : ORAL Patient Dose: 4 mg Oral every 6 hours PRN. NexIUM: CAPSULE,DELAYED RELEASE (ENTERIC COATED) : Strength - 40 mg : ORAL Patient Dose: 40 mg Oral once a day. Bentyl: TABLET : Strength - 20 mg : ORAL Patient Dose: 20 mg Oral every 6 hours PRN. Carafate: SUSPENSION, ORAL (FINAL DOSE FORM) : Strength - 1 gram/10 mL : ORAL &a-1R&a+25V*p+0X*k0693S*c202B*c15G*c2P*p-0X&a-25V&a+1R Name: Radha Prieto : 1990 F26 MedRec: [id number] AcctNum: [id number] Prepared: MonJul 27, 2016 21:29 by Interface Page 1 of 10 pMD [facility] EMERGENCY RECORD Patient Dose: 10 mL Oral 3 times a day (before meals). VITAL SIGNS VITAL SIGNS: BP: 131/80, Pulse: 61, Resp: 18 (Non-Labored), Temp: 97.0 (Oral), Pain: 9, O2 sat: 100 on Room Air, Time: 07/27/2016 08:33. (08:33 EPIE) BP: 126/89, Pulse: 59, Resp: 18 (Non-Labored), O2 sat: 100 on Room Air, Time: 07/27/2016 09:20. (09:20 EPIE) BP: 123/86, Pulse: 50, Resp: 18 (Non-Labored), Pain: 0, O2 sat: 100 on Room Air, Time: 07/27/2016 09:45. (09:45 EPIE) Temp: 97.2 ORAL, Time: 07/27/2016 10:00. (10:00 EPIE) NURSING ASSESSMENT: ABDOMEN (08:45 EPIE) CONSTITUTIONAL: Patient arrives ambulatory, Gait steady, History obtained from patient, Patient appears, restless, uncomfortable, Patient cooperative, Patient alert, Oriented to person, place and time, Skin warm, Skin dry, Skin normal in color, Mucous membranes pink, Mucous membranes moist, Patient is well-groomed, Pt states that she has been here 3 times here recently. States she has been taking prescribed medications. Pt reports nausea and vomiting along with abdominal pain. Pt states she has epigastric pain that radiated to her abdomen. Reports multiple vomiting since 0500. PAIN: aching pain, cramping pain, to the epigastric region, Pain radiates, diffuse lower abdomen, on a scale 0-10 patient rates pain as 9. ABDOMEN: Abdomen assessment findings include abdomen symmetrical, Abdomen soft, tender, diffusely, Associated with nausea, Associated with vomiting, Number of times: "muntiple since 0500". GENITOURINARY FEMALE: no associated urinary complaints. NURSING PROCEDURE: HVAC RESIDENTIAL SERVICE TECHNICIAN (09:26 EPIE) HVAC RESIDENTIAL SERVICE TECHNICIAN: Patient placed on non-invasive blood pressure monitor, with disposable blood pressure cuff applied, Patient placed on continuous pulse oximetry, Adult/pediatric oxisensor applied. FOLLOW-UP: After procedure, alarms set and on, After procedure, patient tolerating monitoring. NURSING PROCEDURE: DISCHARGE NOTE (10:00 EPIE) DISCHARGE: Patient discharged to home, ambulating without assistance, driving self, unaccompanied, Summary of Care printed/ provided, Discharge instructions given to patient, Simple or moderate discharge teaching performed, Above person(s) verbalized understanding of discharge instructions and follow-up care, Notes: Pt strongly advised to follow up with GI specialist. BELONGINGS: Belongings and valuables with patient upon arrival to the Emergency Department include:, Belongings and valuables with patient at time of discharge include:, Belongings remain with patient, Valuables remain with patient. &a-1R&a+25V*p+0X*a5316F*c202B*c15G*c2P*p-0X&a-25V&a+1R Name: Radha Prieto : 1990 F26 MedRec: [id number] AcctNum: [id number] Prepared: MonJul 27, 2016 21:29 by Interface Page 2 of 10 pMD [facility] EMERGENCY RECORD VITAL SIGNS: Temp: 97.2 ORAL. NURSING PROCEDURE: IV PATIENT IDENITIFIER: Patient actively involved in identification process, Patient's identity verified by patient stating name, Patient's identity verified by hospital ID kevin. (09:16 EPIE) IV SITE 1: IV established, to the left antecubital, using a 20 gauge catheter, in one attempt, IV site prepped with chloroprep, Saline lock established, Flushed with normal saline (mls): 10, Labs drawn at time of placement, labeled in the presence of the patient and sent to lab. (09:16 EPIE) FOLLOW-UP SITE 1: After procedure, no drainage at IV site, After procedure, no swelling at IV site, After procedure, no redness at IV site. (09:16 EPIE) NOTES: Notes: IV DC with catheter intact. Pressure and dressing applied. (10:00 EPIE) NURSING PROCEDURE: NURSE NOTES NURSES NOTES: Notes: Pt resting in bed with RR even and unlabored. Pt appears to be restless at this time. (09:26 EPIE) Notes: Patient resting with RR even and unlabored. No new complaints at this time. Pt reports she has a pain of 0/10 and feels much better. ERMD made aware. IV fluids still infusing. (09:48 EPIE) ORDER DETAILS Order Name: CBC with Differential, Status: Active, Time: 09:03 07/27/2016, User: BPIC, - Ordered for: MD Lamar Bryan, - Entered by: MD Lamar Bryan - MonJul 27, 2016 09:03, - Quantity: 1, Order Name: Comprehensive Metabolic Panel, Status: Active, Time: 09:03 07/27/2016, User: BPIC, - Ordered for: MD Lamar Bryan, - Entered by: MD Lamar Bryan - MonJul 27, 2016 09:03, - Quantity: 1, Order Name: Lipase, Status: Active, Time: 09:03 07/27/2016, User: BPIC, - Ordered for: MD Lamar Bryan, - Entered by: MD Lamar Bryan - MonJul 27, 2016 09:03, - Quantity: 1, Order Name: Urinalysis with Microscopic, Status: Active, Time: 09:13 07/27/2016, User: MSPE, - Ordered for: MD Lamar Bryan, - Entered by: BRADLEY Dailey Marilyn - MonJul 27, 2016 09:13, - Quantity: 1. MEDICATION ADMINISTRATION SUMMARY Drug Name: Bentyl intramuscular, Dose Ordered: 20 mg, Route: &a-1R&a+25V*p+0X*j5586M*c202B*c15G*c2P*p-0X&a-25V&a+1R Name: Radha Prieto : 1990 F26 MedRec: [id number] AcctNum: [id number] Prepared: MonJul 27, 2016 21:29 by Interface Page 3 of 10 pMD [facility] EMERGENCY RECORD Intramuscular, Status: Given, Time: 09:25 07/27/2016, Drug Name: ondansetron HCl intravenous, Dose Ordered: 8 mg, Route: IV Push, Status: Given, Time: 09:22 07/27/2016, Drug Name: GI COCKTAIL - WHITE, Dose Ordered: 40 mL, Route: Oral, Status: Given, Time: 09:18 07/27/2016, Drug Name: sodium chloride 0.9 % intravenous, Dose Ordered: 1000 mL, Route: IV Fluid Infusion, Status: Given, Time: 09:17 07/27/2016, Detailed record available in Medication Service section. MEDICATION SERVICE Bentyl intramuscular: Order: Bentyl intramuscular (dicyclomine HCl) - Dose: 20 mg : Intramuscular Ordered by: Raz Lamar MD Entered by: Raz Lamar MD MonJul 27, 2016 09:05 Documented as given by: Nicky Dailey RN MonJul 27, 2016 09:25 Patient, Medication, Dose, Route and Time verified prior to administration. IM medication, Amount given: 20mg, Amount wasted: 0, Medication administered to right thigh, Patient appears Awake and alert- acceptable, Correct patient, time, route, dose and medication confirmed prior to administration, Patient advised of actions and side-effects prior to administration, Allergies confirmed and medications reviewed prior to administration, Patient in position of comfort, Side rails up, Cart in lowest position. GI COCKTAIL - WHITE: Order: GI COCKTAIL - WHITE - Dose: 40 mL : Oral Lidocaine Viscous (lidocaine HCl) [10 mL] MAG-AL (magnesium hydroxide/aluminum hydroxide) [30 mL] Ordered by: Raz Lamar MD Entered by: Raz Lamar MD MonJul 27, 2016 09:05 Documented as given by: Nicky Dailey RN MonJul 27, 2016 09:18 Patient, Medication, Dose, Route and Time verified prior to administration. Site: Medication administered P.O., Patient appears Awake and alert- acceptable, Correct patient, time, route, dose and medication confirmed prior to administration, Patient advised of actions and side-effects prior to administration, Allergies confirmed and medications reviewed prior to administration, Patient in position of comfort, Side rails up, Cart in lowest position. ondansetron HCl intravenous: Order: ondansetron HCl intravenous (ondansetron HCl) - Dose: 8 mg : IV Push Ordered by: Raz Lamar MD Entered by: Raz Lamar MD MonJul 27, 2016 09:04 , Acknowledged by: Nicky Dailey RN MonJul 27, 2016 09:05 Documented as given by: Nicky Dailey RN MonJul 27, 2016 09:22 Patient, Medication, Dose, Route and Time verified prior to administration. Amount given: 8mg, IV SITE #1 IVP, initial medication, Slowly, Awake and alert- acceptable, Connections checked prior to administration, Line traced prior to administration, Catheter placement confirmed via &a-1R&a+25V*p+0X*q3608S*c202B*c15G*c2P*p-0X&a-25V&a+1R Name: Radha Prieto : 1990 F26 MedRec: [id number] AcctNum: [id number] Prepared: MonJul 27, 2016 21:29 by Interface Page 4 of 10 D [facility] EMERGENCY RECORD flush prior to administration, IV site without signs or symptoms of infiltration during medication administration, No swelling during administration, No drainage during administration, IV flushed after administration, Correct patient, time, route, dose and medication confirmed prior to administration, Patient advised of actions and side-effects prior to administration, Allergies confirmed and medications reviewed prior to administration, Patient in position of comfort, Side rails up, Cart in lowest position. sodium chloride 0.9 % intravenous: Order: sodium chloride 0.9 % intravenous (0.9 % sodium chloride) - Dose: 1000 mL : IV Fluid Infusion Schedule: Bolus Ordered by: Raz Lamar MD Entered by: Raz Lamar MD MonJul 27, 2016 09:04 , Acknowledged by: Nicky Dailey RN MonJul 27, 2016 09:05 Documented as given by: Nicky Dailey RN MonJul 27, 2016 09:17 Patient, Medication, Dose, Route and Time verified prior to administration. Amount given: 1000ml, IV SITE #1 IV fluids established for hydration, IV SITE #1 into left antecubital, IV SITE #1 1st bag hung, amount 1 Liter hung, IV SITE #1 bolus of 1000 ml established, IV SITE #1 Rate of bolus, wide open, via primary tubing, Awake and alert- acceptable, Connections checked prior to administration, Line traced prior to administration, Catheter placement confirmed via flush prior to administration, IV site without signs or symptoms of infiltration during medication administration, No swelling during administration, No drainage during administration, IV flushed after administration, Correct patient, time, route, dose and medication confirmed prior to administration, Patient advised of actions and side-effects prior to administration, Allergies confirmed and medications reviewed prior to administration, Patient in position of comfort, Side rails up, Cart in lowest position. : Follow Up : Response assessment performed, No signs or symptoms of allergic reaction noted, _IV SITE #1:_, IV fluid infusion discontinued, on MonJul 27, 2016 10:11, 55 minutes, ., Total amount infused: 1L, IV Discontinued with catheter intact. (10:00 EPIE) HPI NAUSEA/VOMITING/DIARRHEA (09:14 BPIC) CHIEF COMPLAINT: Patient presents for evaluation of nausea, Patient presents for evaluation of vomiting, Patient presents for evaluation of diarrhea. HISTORIAN: History provided by patient, Pt with N/V/D that has started within the past week.. She has been to the ER 3 times now for the same complaint. She also states that she has had stomach issues for a long time. She has been seeing her pcp and has an appointment tomorrow, however, she has never seen a specialist. No unusual travel, food or sick contacts. Mild non focal epigastric abdominal cramping. she has been taking the prescribed meds at home, but threw up again this morning and pain has returned. labs including &a-1R&a+25V*p+0X*v8484L*c202B*c15G*c2P*p-0X&a-25V&a+1R Name: Radha Prieto : 1990 F26 MedRec: [id number] AcctNum: [id number] Prepared: MonJul 27, 2016 21:29 by Interface Page 5 of 10 pMD [facility] EMERGENCY RECORD hcg and ct scan with iv contrast from 2 days ago largely unremarkable. LOCATION FEMALE: Symptoms are generalized. TIME COURSE: Gradual onset of symptoms, There has been no change in the patient's symptoms over time. ASSOCIATED WITH FEMALE: No associated bright red blood per rectum, No associated hematemesis. EXACERBATED BY: Patient's condition exacerbated by nothing. RELIEVED BY: Patient's condition relieved by nothing. ROS (09:14 BPIC) CONSTITUTIONAL: Negative constitutional review of systems, Historian denies chills, Historian denies fever. EYES: Negative eye review of systems. ENT: Negative ears, nose, throat review of systems. CARDIOVASCULAR: Negative cardiovascular review of systems, Historian denies chest pain, Historian denies palpitations. RESPIRATORY: Negative respiratory review of systems, Historian denies cough, Historian denies shortness of breath. GI: see hpi. MUSCULOSKELETAL: Negative musculoskeletal review of systems. SKIN: Negative skin review of systems. NEUROLOGIC: Negative neurologic review of systems. ENDOCRINE: Negative endocrine review of systems. HEMO/LYMPHATIC: Normal hematologic/lymphatic system review. PSYCHIATRIC: Negative psychiatric review of systems. NOTES: All other ROS is negative except as listed in HPI. PAST MEDICAL HISTORY MEDICAL HISTORY: Past medical history includes pulmonary disease, asthma, Flu vaccine not up to date, Tetanus not up to date, Past medical history includes gastrointestinal disease, chronic constipation. (08:38 EPIE) FEMALE SURGICAL HISTORY: Surgical history of appendectomy. (08:38 EPIE) PSYCHIATRIC HISTORY: No previous psychiatric history. (08:38 EPIE) SOCIAL HISTORY: Patient drinks socially, every week, Patient is a former drug user, abused marijuana, Patient currently uses tobacco, Patient smokes ocassionally. (08:38 EPIE) FAMILY HISTORY: Family history is non-contributory to this case. Maternal history of HIV, mother 2 years ago. pt. is not certain but "pretty sure it was HIV - it was a bad virus for sure". (08:38 EPIE) NOTES: I have reviewed and agree with the PMH/PSxH/FamHx/SocHx obtained by the nurse. (09:14 BPIC) &a-1R&a+25V*p+0X*f2469B*c202B*c15G*c2P*p-0X&a-25V&a+1R Name: Radha Prieto : 1990 F26 MedRec: [id number] AcctNum: [id number] Prepared: MonJul 27, 2016 21:29 by Interface Page 6 of 10 pMD [facility] EMERGENCY RECORD PHYSICAL EXAM (09:14 BPIC) CONSTITUTIONAL: Vital signs reviewed, Patient appears non toxic, Patient alert and oriented to person, place and time, Pt is in no apparent distress. HEAD: Head exam included findings of head atraumatic, normocephalic. EYES: Eye exam included findings of eyelids normal to inspection, Pupils equally round and reactive to light, Extraocular muscles intact. ENT: ENT exam normal, Nose exam normal, no nasal deformity, no bleeding from nares, Pharynx exam normal, Mouth exam normal, mucous membranes moist. NECK: Neck exam included findings of normal range of motion, Trachea midline. RESPIRATORY CHEST: Respiratory and chest exam normal, Breath sounds clear, No wheezing, No rales, Chest exam included findings of chest movement symmetrical, Chest expansion equal. CARDIOVASCULAR: Cardiovascular assessment normal, Cardiovascular exam included findings of heart rate regular rate and rhythm, Heart sounds normal. ABDOMEN FEMALE: Abdominal exam included findings of abdomen mildly tender in epigastric region, Bowel sounds normal, no mass, no pulsatile masses, no peritoneal signs. BACK: Back exam included findings of normal inspection, range of motion normal, no costovertebral angle tenderness. UPPER EXTREMITY: Upper extremity exam included findings of inspection normal, Range of motion normal. LOWER EXTREMITY: Lower extremity exam included findings of inspection normal, Range of motion normal. NEURO: Neuro exam findings include patient oriented to person, place and time, Speech normal, no focal motor deficits, no focal sensory deficits. SKIN: Skin exam included findings of skin warm, dry, and normal in color. LYMPHATIC: Lymphatic exam normal. PSYCHIATRIC: Psychiatric exam included findings of patient oriented to person place and time, Normal affect. EVENTS TRANSFER: Triage to Emergency Triage. (MonJul 27, 2016 08:35 EPIE) Emergency Triage to Emergency Room -03. (08:36 EPIE) Removed from Emergency Emergency Room -03. (10:11 MSPE) DOCTOR NOTES (09:14 BPIC) TEXT: N/V/D symptomatic treatment, icreased fluid intake and Return to the ED with any development of increasing abdominal pain. likely irritable bowel syndrome with long history of stomach problems. I discussed the diagnosis with the patient prior to discharge. All &a-1R&a+25V*p+0X*b5332R*c202B*c15G*c2P*p-0X&a-25V&a+1R Name: Radha Prieto : 1990 F26 MedRec: [id number] AcctNum: [id number] Prepared: MonJul 27, 2016 21:29 by Interface Page 7 of 10 pMD [facility] EMERGENCY RECORD questions were answered. There is no indication for admission currently and the patient will follow up with his primary care physician or with GI specialist. Any pertinent labs or imaging was reviewed and dicussed with the patient. If any new or emergent symptoms occur, the patient will return to the emergency department. PROBLEM LIST No recorded problems DIAGNOSIS (09:47 BPIC) FINAL: PRIMARY: gastritis, ADDITIONAL: nausea and vomiting. DISPOSITION PATIENT: Disposition Type: Discharge, Disposition: *Discharge Home, Condition: Good. (09:47 BPIC) Patient left the department. (10:11 MSPE) INSTRUCTION (09:48 BPIC) DISCHARGE: GASTRITIS (ADULT). FOLLOWUP: Mare TORRES, ORTIZ, Gastroenterology, [facility] [address], [facility] [id number], [phone]. SPECIAL: Thank you for choosing [facility] Emergency Department for your care today! Please follow up with your primary doctor in the next 2-3 days. Return to the emergency department with any other worsening or emergent symptoms. God bless you!. PRESCRIPTION No recorded prescriptions IMAGING (10:15 EPIE) *DISCHARGE INSTRUCTIONS RECEIPT: Image captured from scanner. *SUPPLY CHARGE SHEET: Image captured from scanner. ADMIN (21:17 BPIC) DIGITAL SIGNATURE: MD Lamar Bryan. RESULTS LABORATORY: CBC with Differential Collection DT: MonJul 27, 2016 09:22, White Blood Cell (WBC) Count 7.1 thou/uL, Range (4.8-10.8), Red Blood Cell (RBC) Count 4.36 mill/uL, Range (4.20-5.40), Hemoglobin 13.5 g/dL, Range (12.0-16.0), Hematocrit 42.9 %, Range (36.0-47.0), Mean Corpuscular Volume 98.3 fl, Range (81.0-99.0), Mean Corpuscular Hemoglobin 31.0 pg, Range (27.0-31.0), *Mean Corpuscular HGB CONC 31.5 - L g/dL, Range (32.0-36.0), RBC Distribution Width 11.8 %, Range (11.5-14.5), &a-1R&a+25V*p+0X*s2311M*c202B*c15G*c2P*p-0X&a-25V&a+1R Name: Radha Prieto Mikey : 1990 F26 MedRec: [id number] AcctNum: [id number] Prepared: MonJul 27, 2016 21:29 by Interface Page 8 of 10 pMD [facility] EMERGENCY RECORD Platelet Count 190 thou/uL, Range (130-400), Mean Platelet Volume 7.4 fL, Range (7.4-10.4), %Neutrophils 63.2 %, Range (42.0-75.0), %Lymphocytes 29.4 %, Range (21.0-51.0), %Monocytes 4.9 %, Range (0.0-10.0), %Eosinophils 0.6 %, Range (0.0-10.0), *%Basophils 1.9 - H %, Range (0.0-1.0), #Neutrophils 4.5 thou/uL, Range (1.40-6.50), #Lymphocytes 2.1 thou/uL, Range (1.20-3.40), #Monocytes 0.4 thou/uL, Range (0.11-0.59), #Eosinphils 0.0 thou/uL, Range (0.0-0.7), #Basophils 0.1 thou/uL, Range (0.0-0.2). (09:45 BPIC) Urinalysis with Microscopic Collection DT: MonJul 27, 2016 09:22, Color Yellow , Range (Yellow), Clarity Clear , Range (Clear), Specific [place], Urine 1.015 , Range (1.005-1.030), pH, Urine 8.5 , Range (5.0-9.0), Leukocyte Negative , Range (Negative), Nitrite Negative , Range (Negative), Protein, Urine (Dipstick) Negative mg/dL, Range (Neg-Trace), Glucose, Urine (Dipstick) Negative mg/dL, Range (Negative), Ketone, Urine Negative mg/dL, Range (Negative), Urobilinogen 0.2 mg/dL, Range (0.2-1.0), Bilirubin Negative , Range (Negative), Blood, Urine Negative , Range (Negative), RBC/HPF None Seen HPF, Range (0-3), WBC/HPF 0-3 HPF, Range (0-3), *Squamous Epithelial 7-10 - H HPF, Range (0-3), Bacteria/HPF Rare-Few HPF, Range (None Seen). (09:45 BPIC) Lipase Collection DT: MonJul 27, 2016 09:22, Lipase 33 U/L, Range (8-78). (09:47 BPIC) Comprehensive Metabolic Panel Collection DT: MonJul 27, 2016 09:22, Sodium 140 mmol/L, Range (136-145), Potassium 4.0 mmol/L, Range (3.5-5.1), *Chloride 108 - H mmol/L, Range (98-107), Carbon Dioxide 24 mmol/L, Range (22-29), Anion Gap 12 mmol/L, Range (10-20), BUN (Urea Nitrogen) 9 mg/dL, Range (7.0-18.7), Creatinine 0.86 mg/dL, Range (0.6-1.1), Estimated GFR-MDRD Greater than 90 , Reference Range for Estimated GFR: Greater than 90, mL/min/1.73 m2 NOTE: The MDRD equation has not been validated for use, with the elderly (over 70 years of age), women, patients with, serious comorbid condition or persons with extremes of body size, muscle, mass, or nutritional status. , Glucose 91 mg/dL, Range (70-105), Calcium 9.2 mg/dL, Range (7.8-10.44), &a-1R&a+25V*p+0X*h0826L*c202B*c15G*c2P*p-0X&a-25V&a+1R Name: Radha Prieto : 1990 F26 MedRec: [id number] AcctNum: [id number] Prepared: MonJul 27, 2016 21:29 by Interface Page 9 of 10 pMD [facility] EMERGENCY RECORD Bilirubin, Total 0.4 mg/dL, Range (0.2-1.2), Protein, Total 7.1 g/dL, Range (6.0-8.3), NOTE: Plasma values are generally 0.3 to 0.5 g/dL higher than serum values, due to the presence of fibrinogen. , Albumin 4.3 g/dL, Range (3.5-5.0), Globulin 2.8 g/dL, Range (2.4-3.5), Alb/Glob Ratio 1.5 g/dL, Range (1.2-2.2), Alkaline Phosphatase 73 U/L, Range (40-150), AST (SGOT) 19 U/L, Range (5-34), ALT (SGPT) 15 U/L, Range (0-55). (09:47 BPIC) Shi: BPIC=MD Willard, Raz EPIE=BRADLEY Hoyos, Marjan MSPE=BRADLEY Dailey, Nicky &a-1R&a+25V*p+0X*y1326W*c202B*c15G*c2P*p-0X&a-25V&a+1R Name: Radha Prieto : 1990 F26 MedRec: [id number] AcctNum: [id number] Prepared: MonJul 27, 2016 21:29 by Interface Page 10 of 10 pMD MTDD
== END 2016-07-27 10:00 | disposition home or self-care (01) ==
LOC: NAV ERS 08:28
DX: K29.70 Gastritis, unspecified, without bleeding (principal); J45.909 Unspecified asthma, uncomplicated; Z72.0 Tobacco use; Z79.899 Other long term (current) drug therapy
CPT/HCPCS: 36415; 80053; 81001; 83690; 85025; 96361; 96372; 96374; J2405; J7050

== ENCOUNTER 2016-07-29 08:26 | Emergency (ER) | payer OTHER ==
--- NOTE | 2016-07-29 09:24 | ERRECORD ---
[facility] EMERGENCY RECORD HPI ABDOMINAL PAIN (09:34 JOHE) CHIEF COMPLAINTS: Patient presents for evaluation of abdominal pain. HISTORIAN: History provided by patient, Pt. here for one week of intermittent, sharp, epigastric abd. pain radiating to the periumbilical region, associated with multiple episodes of nonbloody, nonbilious vomiting. Patient states pain worse in the morning, no association with/without meals, no trauma or ill contacts. Patient reports stools slightly loose, but no luca diarrhea, no hematochezia, melena, F&C, urinary symptoms or other complaints. Seen here several times this week, and had prior evaluation including CT scan and labs. Went to PCP yesterday, and reportedly was told to stop going to ED for this pain, but says she had trouble keeping down her meds this morning so she came back. Reports now N&V resolved currently and feeling better, but still has some pain. Has appt. scheduled with GI for this upcoming week (). LOCATION FEMALE: Symptoms are localized, most severe in the epigastrium. QUALITY: Pain is sharp in nature, described as stabbing. SEVERITY: Maximum severity of symptoms severe, Currently symptoms are severe. TIME COURSE: Patient unable to describe onset of symptoms, Symptoms are intermittent, Symptoms are improving. ASSOCIATED WITH FEMALE: No associated recent antibiotic use, No associated bright red blood per rectum, No associated chills, No associated constipation, No associated diarrhea, No associated fever, No associated flank pain, No associated groin pain, No associated hematemesis, No associated hematuria, No associated loss of appetite, No associated melena, Associated with nausea, No associated night sweats, No associated trauma, No associated recent travel, Associated with inability to tolerate oral intake, No associated urinary tract infection signs or symptoms, Associated with vomiting, No associated vaginal discharge, No associated vaginal bleeding, No associated weight change, Denies any other complaints. RELIEVED BY: Patient's condition relieved by prescription medications. EXACERBATED BY: Patient's condition exacerbated by nothing. RISK FACTORS FEMALE: Abdominal aortic aneurysm risk factors, no connective tissue disorders, no Ernesto Danlos syndrome, no first degree relative, no Marfan's syndrome, patient not over 40 years of age, no history of abdominal aortic aneurysm, Coronary artery disease risk factors, no known coronary artery disease, no diabetes, no high cholesterol, no hypertension, include smoking. ROS (09:53 JOHE) CONSTITUTIONAL: Historian denies chills, denies fever, denies night sweats. EYES: Historian denies eye pain, denies eye redness, denies vision changes. ENT: Historian denies otalgia, denies rhinorrhea, denies sore &a-1R&a+25V*p+0X*[id number]*c202B*c15G*c2P*p-0X&a-25V&a+1R Name: Radha Prieto : 1990 F26 MedRec: [id number] AcctNum: [id number] Prepared: MonJul 29, 2016 10:06 by Interface Page 1 of 5 pMD [facility] EMERGENCY RECORD throat. CARDIOVASCULAR: Historian denies chest pain, denies syncope, denies palpitations. RESPIRATORY: Historian denies cough, denies shortness of breath, denies wheezing. GI: Historian reports abdominal pain, denies appetite changes, denies constipation, denies diarrhea, denies hematemesis, denies hematochezia, denies melena, reports nausea, reports vomiting. GENITOURINARY FEMALE: Historian denies dysuria, denies frequency, denies hematuria, denies hesitancy, denies , denies urgency, reports urine output changes, denies urinary retention, denies vaginal bleeding, denies vaginal discharge. MUSCULOSKELETAL: Historian denies arthralgias, denies back pain, denies neck pain. SKIN: Historian denies rash, denies skin changes. NEUROLOGIC: Historian denies dizziness, denies focal weakness, denies gait changes, denies headache, denies paresthesias, denies seizures. NOTES: All systems reviewed, negative except as described above. PAST MEDICAL HISTORY (08:35 BDON) MEDICAL HISTORY: Past medical history includes pulmonary disease, asthma, Flu vaccine not up to date, Tetanus not up to date, Past medical history includes gastrointestinal disease, chronic constipation. FEMALE SURGICAL HISTORY: Surgical history of appendectomy. PSYCHIATRIC HISTORY: No previous psychiatric history. SOCIAL HISTORY: Patient drinks socially, every week, Patient is a former drug user, abused marijuana, Patient currently uses tobacco, Patient smokes ocassionally. FAMILY HISTORY: Family history is non-contributory to this case. Maternal history of HIV, mother 2 years ago. pt. is not certain but "pretty sure it was HIV - it was a bad virus for sure". KNOWN ALLERGIES Ultram: Reaction: Nausea, - states"blows up" CURRENT MEDICATIONS (08:33 BDON) albuterol: AEROSOL (GRAM) : Strength - 90 mcg : INHALATION Patient Dose: 2 puff(s) Oral As Needed. Lodine: CAPSULE : Strength - 300 mg : ORAL Patient Dose: 300 mg Oral every 8 hours PRN. Zofran ODT: TABLET,DISINTEGRATING : Strength - 4 mg : ORAL Patient Dose: 4 mg Oral every 6 hours PRN. &a-1R&a+25V*p+0X*[id number]*c202B*c15G*c2P*p-0X&a-25V&a+1R Name: Radha Prieto : 1990 F26 MedRec: [id number] AcctNum: [id number] Prepared: MonJul 29, 2016 10:06 by Interface Page 2 of 5 pMD [facility] EMERGENCY RECORD NexIUM: CAPSULE,DELAYED RELEASE (ENTERIC COATED) : Strength - 40 mg : ORAL Patient Dose: 40 mg Oral once a day. Bentyl: TABLET : Strength - 20 mg : ORAL Patient Dose: 20 mg Oral every 6 hours PRN. Carafate: SUSPENSION, ORAL (FINAL DOSE FORM) : Strength - 1 gram/10 mL : ORAL Patient Dose: 10 mL Oral 3 times a day (before meals). VITAL SIGNS (08:29 BDON) VITAL SIGNS: BP: 169/90, Pulse: 64, Resp: 19, Temp: 98.1 (Oral), Pain: 10, O2 sat: 98, Time: 07/29/2016 08:29. PHYSICAL EXAM (09:54 JOHE) CONSTITUTIONAL: Vital Signs Reviewed, Patient appears non toxic, Patient alert and oriented to person, place and time, Nursing notes reviewed, appears well-hydrated, tearful with good tear production, moist oral mucosa. HEAD: Head exam normal, Head exam included findings of head atraumatic, normocephalic. EYES: Eye exam normal, Eye exam included findings of eyelids normal to inspection, Pupils equally round and reactive to light, Extraocular muscles intact, Conjunctiva normal, Sclera normal. ENT: ENT exam normal, Pharynx exam normal, not injected, no swelling, symmetrical, Uvula exam normal, midline, no edema, Tonsil exam normal, not enlarged, no exudates. NECK: Neck exam normal, Neck exam included findings of normal range of motion, Trachea midline. RESPIRATORY CHEST: Respiratory and chest exam normal, Respiratory exam included findings of no respiratory distress, Breath sounds clear, No wheezing, No rales, No rhonchi, Breath sounds not absent, Breath sounds not diminished, CTAB. CARDIOVASCULAR: Cardiovascular assessment normal, Cardiovascular exam included findings of heart rate regular rate and rhythm, Heart sounds normal, Pedal pulses normal, RRR, no R/M/G. + pulses all ext., no edema. ABDOMEN FEMALE: Bowel sounds normal, no mass, no pulsatile masses, no peritoneal signs, no rigidity, no guarding, no rebound, Soft, ND, mildly TTP epigastrium, and RUQ without guarding or rebound. + BS, no CVAT. No masses; Equivocal Martinez sign. BACK: Back exam normal, Back exam included findings of normal inspection, range of motion normal, no costovertebral angle tenderness. UPPER EXTREMITY: Upper extremity exam normal, Upper extremity exam included findings of inspection normal, Range of motion normal, Radial pulse normal. LOWER EXTREMITY: Lower extremity exam normal, Lower extremity exam included findings of inspection normal, Range of motion normal, Pedal pulse normal, no edema. &a-1R&a+25V*p+0X*d3770R*c202B*c15G*c2P*p-0X&a-25V&a+1R Name: Radha Prieto : 1990 F26 MedRec: [id number] AcctNum: [id number] Prepared: MonJul 29, 2016 10:06 by Interface Page 3 of 5 pMD [facility] EMERGENCY RECORD NEURO: Neuro exam normal, Jaspreet coma scale 15, Neuro exam findings include patient oriented to person, place and time, Speech normal, Gait normal, Cranial nerves intact, no focal motor deficits, no focal sensory deficits. SKIN: Skin exam normal, Skin exam included findings of skin warm, dry, and normal in color, no rash. MEDICATION ADMINISTRATION SUMMARY Drug Name: Normal Saline, Dose Ordered: 1000 mL, Route: IV Fluid Infusion, Status: Ordered, Time: 08:59 07/29/2016, Drug Name: Zofran intravenous, Dose Ordered: 4 mg, Route: IV Push, Status: Ordered, Time: 08:58 07/29/2016, Drug Name: acetaminophen oral, Dose Ordered: 1 g, Route: Oral, Status: Ordered, Time: 08:58 07/29/2016, Drug Name: Protonix intravenous, Dose Ordered: 40 mg, Route: IV Push, Status: Ordered, Time: 08:57 07/29/2016, Detailed record available in Medication Service section. DOCTOR NOTES (09:00 ) TEXT: Patient states she does not want to get stuck and have labs drawn again. Discussed with patient that based on complaints of abdominal pain and inability to keep liquids down at home, that IVF hydration and lab testing is indicated, and that we cannot further evaluate her without more information. Patient states she wants to leave and go to another hospital. Discusssed with patient that we cannot rule out more concerning causes of abdominal pain at this time, and leaving could result in worsening of condition, and even or disability. Patient verbalized understanding and that she still wants to leave. Patient is AAO, and is competent to make her own medical decisions, so AMA form provided to patient. Discussed she can return at any time if she changes her mind, and stressed need to f/u with her PCP and GI physician as well, and to continue the medications provided to her by her doctors, as prescribed (nexium, etc). PROBLEM LIST No recorded problems DIAGNOSIS FINAL: PRIMARY: epigastric abdominal pain, ADDITIONAL: Nausea with vomiting. (09:08 ) PRIMARY: AMA, ADDITIONAL: epigastric abdominal pain, Nausea with vomiting. (09:18 BDON) PRESCRIPTION No recorded prescriptions DISPOSITION PATIENT: Disposition Type: Eloped, Disposition: Against Medical &a-1R&a+25V*p+0X*[id number]*c202B*c15G*c2P*p-0X&a-25V&a+1R Name: Radha Prieto : 1990 F26 MedRec: [id number] AcctNum: [id number] Prepared: MonJul 29, 2016 10:06 by Interface Page 4 of 5 pMD [facility] EMERGENCY RECORD Advice, Condition: Good. (09:08 FLORINDA) Disposition Transport: Ambulatory. (09:18 BDON) Patient left the department. (09:18 BDON) Shi: DENZEL=BRADLEY Villatoro, Abigail NEELY=MD Nasrin, Dean &a-1R&a+25V*p+0X*[id number]*c202B*c15G*c2P*p-0X&a-25V&a+1R Name: Radha Prieto : 1990 F26 MedRec: [id number] AcctNum: [id number] Prepared: MonJul 29, 2016 10:06 by Interface Page 5 of 5 pMD MTDD
--- NOTE | 2016-07-29 09:29 | PICIS ---
[facility] EMERGENCY RECORD TRIAGE (08:32 BDON) TRIAGE NOTES: Generalized abdominal pain with vomiting. Saw PCP yesterday, who told her not to come back to the ER. Patient has appointment with GI next week. This is fourth visit to the ER this week. (08:32 BDON) PATIENT: NAME: Radha Prieto, AGE: 26, GENDER: female, : Mon1990, TIME OF GREET: MonJul 29, 2016 08:26, PREFERRED LANGUAGE: Panamanian, ETHNICITY: Not or , ECODE BILLING MAP: [facility], SSN: [id number], Zip Code: [address], KG WEIGHT: 69.40, PHONE: , , , PERSON ID: [id number], PCP: Saulo Garcia. (08:32 BDON) COMPLAINT: ABDOMINAL PAIN. (08:32 BDON) ADMISSION: URGENCY: 3 Urgent, ADMISSION SOURCE: Home, TRANSPORT: Walk-in, BED: TRIAGE. (08:32 BDON) ASSESSMENT: Assessment: Generalized abdominal pain with vomiting, Symptoms began 6 days ago. (08:35 BDON) PAIN: Patient complains of pain described as. (08:35 BDON) LMP: Last menstrual period: 07/10/2016. (08:35 BDON) PROVIDERS: TRIAGE NURSE: Abigail Villatoro RN. (08:32 BDON) VITAL SIGNS: BP 169/90, Pulse 64, Resp 19, Temp 98.1, (Oral), Pain 10, O2 Sat 98, Time 07/29/2016 08:29. (08:29 BDON) PREVIOUS VISIT ALLERGIES: Ultram. (08:32 BDON) Ultram. (08:35 BDON) KNOWN ALLERGIES Ultram: Reaction: Nausea, - states"blows up" CURRENT MEDICATIONS (08:33 BDON) albuterol: AEROSOL (GRAM) : Strength - 90 mcg : INHALATION Patient Dose: 2 puff(s) Oral As Needed. Lodine: CAPSULE : Strength - 300 mg : ORAL Patient Dose: 300 mg Oral every 8 hours PRN. Zofran ODT: TABLET,DISINTEGRATING : Strength - 4 mg : ORAL Patient Dose: 4 mg Oral every 6 hours PRN. NexIUM: CAPSULE,DELAYED RELEASE (ENTERIC COATED) : Strength - 40 mg : ORAL Patient Dose: 40 mg Oral once a day. Bentyl: TABLET : Strength - 20 mg : ORAL Patient Dose: 20 mg Oral every 6 hours PRN. Carafate: SUSPENSION, ORAL (FINAL DOSE FORM) : Strength - 1 gram/10 mL : ORAL Patient Dose: 10 mL Oral 3 times a day (before meals). VITAL SIGNS (08:29 BDON) &a-1R&a+25V*p+0X*q1454E*c202B*c15G*c2P*p-0X&a-25V&a+1R Name: Radha Prieto : 1990 F26 MedRec: [id number] AcctNum: [id number] Prepared: MonJul 29, 2016 10:12 by Interface Page 1 of 7 pMD [facility] EMERGENCY RECORD VITAL SIGNS: BP: 169/90, Pulse: 64, Resp: 19, Temp: 98.1 (Oral), Pain: 10, O2 sat: 98, Time: 07/29/2016 08:29. NURSING ASSESSMENT: ABDOMEN (08:45 BDON) CONSTITUTIONAL: Patient arrives ambulatory, History obtained from patient, Patient appears, in distress due to pain, Patient cooperative, Patient alert, Oriented to person, place and time, Skin warm, Skin dry, Skin normal in color. PAIN: diffusely. ABDOMEN: Abdomen assessment findings include abdomen symmetrical, Abdomen soft, non-tender, Associated with vomiting. GENITOURINARY FEMALE: no associated urinary complaints. SAFETY: Cart/Stretcher in lowest position, Call light within reach, Hospital ID band on. NURSING PLAN OF CARE: Acute Medical Condition:, Patient is able to participate in development and implementation of nursing plan of care for acute medical condition. NURSING PROCEDURE: DISCHARGE NOTE (09:10 BDON) DISCHARGE: Patient signed out against medical advice, ambulating without assistance, driving self, unaccompanied, Notes: AMA signed Aware that she can return at any time. NURSING PROCEDURE: NURSE NOTES (09:09 BDON) NURSES NOTES: Notes: Does not want to be "stuck" for blood, stating she had lab AMA signed. Patient aware of the danger of leaving without medical care. ORDER DETAILS Order Name: CBC with Differential, Status: Canceled, Time: 09:18 07/29/2016, User: System, - Ordered for: MD Alexandra John, - Entered by: MD Alexandra John - MonJul 29, 2016 08:57, - Quantity: 1, Order Name: Comprehensive Metabolic Panel, Status: Canceled, Time: 09:18 07/29/2016, User: System, - Ordered for: MD Alexandra John, - Entered by: MD Alexandra John - MonJul 29, 2016 08:57, - Quantity: 1, Order Name: Lipase, Status: Canceled, Time: 09:18 07/29/2016, User: System, - Ordered for: MD Alexandra John, - Entered by: MD Alexandra John - MonJul 29, 2016 08:57, - Quantity: 1, Order Name: Urinalysis w/ Rflx Microscopic, Status: Canceled, Time: 09:22 07/29/2016, User: System, - Ordered for: MD Alexandra John, &a-1R&a+25V*p+0X*z6376O*c202B*c15G*c2P*p-0X&a-25V&a+1R Name: Radha Prieto : 1990 F26 MedRec: [id number] AcctNum: [id number] Prepared: MonJul 29, 2016 10:12 by Interface Page 2 of 7 D [facility] EMERGENCY RECORD - Entered by: MD Alexandra John - MonJul 29, 2016 08:57, - Quantity: 1. MEDICATION ADMINISTRATION SUMMARY Drug Name: Normal Saline, Dose Ordered: 1000 mL, Route: IV Fluid Infusion, Status: Ordered, Time: 08:59 07/29/2016, Drug Name: Zofran intravenous, Dose Ordered: 4 mg, Route: IV Push, Status: Ordered, Time: 08:58 07/29/2016, Drug Name: acetaminophen oral, Dose Ordered: 1 g, Route: Oral, Status: Ordered, Time: 08:58 07/29/2016, Drug Name: Protonix intravenous, Dose Ordered: 40 mg, Route: IV Push, Status: Ordered, Time: 08:57 07/29/2016, Detailed record available in Medication Service section. MEDICATION SERVICE acetaminophen oral: Order: acetaminophen oral (acetaminophen) - Dose: 1 g : Oral Schedule: Now Ordered by: Dean Alexandra MD Entered by: Dean Alexandra MD MonJul 29, 2016 08:58 . Normal Saline: Order: Normal Saline (0.9 % sodium chloride) - Dose: 1000 mL : IV Fluid Infusion Schedule: Now Ordered by: Dean Alexandra MD Entered by: Dean Alexandra MD MonJul 29, 2016 08:59 . Protonix intravenous: Order: Protonix intravenous (pantoprazole sodium) - Dose: 40 mg : IV Push Schedule: Now Ordered by: Dean Alexandra MD Entered by: Dean Alexandra MD MonJul 29, 2016 08:57 . Zofran intravenous: Order: Zofran intravenous (ondansetron HCl) - Dose: 4 mg : IV Push Schedule: Now Ordered by: Dean Alexandra MD Entered by: Dean Alexandra MD MonJul 29, 2016 08:58 . HPI ABDOMINAL PAIN (09:34 JOHE) CHIEF COMPLAINTS: Patient presents for evaluation of abdominal pain. HISTORIAN: History provided by patient, Pt. here for one week of intermittent, sharp, epigastric abd. pain radiating to the periumbilical region, associated with multiple episodes of nonbloody, nonbilious vomiting. Patient states pain worse in the morning, no association with/without meals, no trauma or ill contacts. Patient reports stools slightly loose, but no luca diarrhea, no hematochezia, melena, F&C, urinary symptoms or other complaints. Seen here several times this week, and had prior evaluation including CT scan and labs. Went to PCP yesterday, and reportedly was told to stop going to ED for this pain, but says she had trouble keeping down her meds this morning so she &a-1R&a+25V*p+0X*m1725I*c202B*c15G*c2P*p-0X&a-25V&a+1R Name: Radha Prieto : 1990 F26 MedRec: [id number] AcctNum: [id number] Prepared: MonJul 29, 2016 10:12 by Interface Page 3 of 7 pMD [facility] EMERGENCY RECORD came back. Reports now N&V resolved currently and feeling better, but still has some pain. Has appt. scheduled with GI for this upcoming week (). LOCATION FEMALE: Symptoms are localized, most severe in the epigastrium. QUALITY: Pain is sharp in nature, described as stabbing. SEVERITY: Maximum severity of symptoms severe, Currently symptoms are severe. TIME COURSE: Patient unable to describe onset of symptoms, Symptoms are intermittent, Symptoms are improving. ASSOCIATED WITH FEMALE: No associated recent antibiotic use, No associated bright red blood per rectum, No associated chills, No associated constipation, No associated diarrhea, No associated fever, No associated flank pain, No associated groin pain, No associated hematemesis, No associated hematuria, No associated loss of appetite, No associated melena, Associated with nausea, No associated night sweats, No associated trauma, No associated recent travel, Associated with inability to tolerate oral intake, No associated urinary tract infection signs or symptoms, Associated with vomiting, No associated vaginal discharge, No associated vaginal bleeding, No associated weight change, Denies any other complaints. RELIEVED BY: Patient's condition relieved by prescription medications. EXACERBATED BY: Patient's condition exacerbated by nothing. RISK FACTORS FEMALE: Abdominal aortic aneurysm risk factors, no connective tissue disorders, no Ernesto Danlos syndrome, no first degree relative, no Marfan's syndrome, patient not over 40 years of age, no history of abdominal aortic aneurysm, Coronary artery disease risk factors, no known coronary artery disease, no diabetes, no high cholesterol, no hypertension, include smoking. ROS (09:53 JOHE) CONSTITUTIONAL: Historian denies chills, denies fever, denies night sweats. EYES: Historian denies eye pain, denies eye redness, denies vision changes. ENT: Historian denies otalgia, denies rhinorrhea, denies sore throat. CARDIOVASCULAR: Historian denies chest pain, denies syncope, denies palpitations. RESPIRATORY: Historian denies cough, denies shortness of breath, denies wheezing. GI: Historian reports abdominal pain, denies appetite changes, denies constipation, denies diarrhea, denies hematemesis, denies hematochezia, denies melena, reports nausea, reports vomiting. GENITOURINARY FEMALE: Historian denies dysuria, denies frequency, denies hematuria, denies hesitancy, denies , denies urgency, reports urine output changes, denies urinary retention, denies vaginal bleeding, denies vaginal discharge. &a-1R&a+25V*p+0X*z0599F*c202B*c15G*c2P*p-0X&a-25V&a+1R Name: Radha Prieto : 1990 F26 MedRec: [id number] AcctNum: [id number] Prepared: MonJul 29, 2016 10:12 by Interface Page 4 of 7 pMD [facility] EMERGENCY RECORD MUSCULOSKELETAL: Historian denies arthralgias, denies back pain, denies neck pain. SKIN: Historian denies rash, denies skin changes. NEUROLOGIC: Historian denies dizziness, denies focal weakness, denies gait changes, denies headache, denies paresthesias, denies seizures. NOTES: All systems reviewed, negative except as described above. PAST MEDICAL HISTORY (08:35 BDON) MEDICAL HISTORY: Past medical history includes pulmonary disease, asthma, Flu vaccine not up to date, Tetanus not up to date, Past medical history includes gastrointestinal disease, chronic constipation. FEMALE SURGICAL HISTORY: Surgical history of appendectomy. PSYCHIATRIC HISTORY: No previous psychiatric history. SOCIAL HISTORY: Patient drinks socially, every week, Patient is a former drug user, abused marijuana, Patient currently uses tobacco, Patient smokes ocassionally. FAMILY HISTORY: Family history is non-contributory to this case. Maternal history of HIV, mother 2 years ago. pt. is not certain but "pretty sure it was HIV - it was a bad virus for sure". PHYSICAL EXAM (09:54 JOHE) CONSTITUTIONAL: Vital Signs Reviewed, Patient appears non toxic, Patient alert and oriented to person, place and time, Nursing notes reviewed, appears well-hydrated, tearful with good tear production, moist oral mucosa. HEAD: Head exam normal, Head exam included findings of head atraumatic, normocephalic. EYES: Eye exam normal, Eye exam included findings of eyelids normal to inspection, Pupils equally round and reactive to light, Extraocular muscles intact, Conjunctiva normal, Sclera normal. ENT: ENT exam normal, Pharynx exam normal, not injected, no swelling, symmetrical, Uvula exam normal, midline, no edema, Tonsil exam normal, not enlarged, no exudates. NECK: Neck exam normal, Neck exam included findings of normal range of motion, Trachea midline. RESPIRATORY CHEST: Respiratory and chest exam normal, Respiratory exam included findings of no respiratory distress, Breath sounds clear, No wheezing, No rales, No rhonchi, Breath sounds not absent, Breath sounds not diminished, CTAB. CARDIOVASCULAR: Cardiovascular assessment normal, Cardiovascular exam included findings of heart rate regular rate and rhythm, Heart sounds normal, Pedal pulses normal, RRR, no R/M/G. + pulses all ext., no edema. ABDOMEN FEMALE: Bowel sounds normal, no mass, no pulsatile masses, no peritoneal signs, no rigidity, no guarding, no rebound, Soft, ND, mildly TTP epigastrium, and RUQ without guarding or &a-1R&a+25V*p+0X*m2020P*c202B*c15G*c2P*p-0X&a-25V&a+1R Name: Radha Prieto : 1990 F26 MedRec: [id number] AcctNum: [id number] Prepared: MonJul 29, 2016 10:12 by Interface Page 5 of 7 pMD [facility] EMERGENCY RECORD rebound. + BS, no CVAT. No masses; Equivocal Martinez sign. BACK: Back exam normal, Back exam included findings of normal inspection, range of motion normal, no costovertebral angle tenderness. UPPER EXTREMITY: Upper extremity exam normal, Upper extremity exam included findings of inspection normal, Range of motion normal, Radial pulse normal. LOWER EXTREMITY: Lower extremity exam normal, Lower extremity exam included findings of inspection normal, Range of motion normal, Pedal pulse normal, no edema. NEURO: Neuro exam normal, Jaspreet coma scale 15, Neuro exam findings include patient oriented to person, place and time, Speech normal, Gait normal, Cranial nerves intact, no focal motor deficits, no focal sensory deficits. SKIN: Skin exam normal, Skin exam included findings of skin warm, dry, and normal in color, no rash. EVENTS TRANSFER: Triage to Emergency Triage. (MonJul 29, 2016 08:32 BDON) Emergency Triage to Emergency Room -03. (08:33 BDON) Removed from Emergency Emergency Room -03. (09:18 BDON) DOCTOR NOTES (09:00 JOHRohan) TEXT: Patient states she does not want to get stuck and have labs drawn again. Discussed with patient that based on complaints of abdominal pain and inability to keep liquids down at home, that IVF hydration and lab testing is indicated, and that we cannot further evaluate her without more information. Patient states she wants to leave and go to another hospital. Discusssed with patient that we cannot rule out more concerning causes of abdominal pain at this time, and leaving could result in worsening of condition, and even or disability. Patient verbalized understanding and that she still wants to leave. Patient is AAO, and is competent to make her own medical decisions, so AMA form provided to patient. Discussed she can return at any time if she changes her mind, and stressed need to f/u with her PCP and GI physician as well, and to continue the medications provided to her by her doctors, as prescribed (nexium, etc). PROBLEM LIST No recorded problems DIAGNOSIS FINAL: PRIMARY: epigastric abdominal pain, ADDITIONAL: Nausea with vomiting. (09:08 ) PRIMARY: AMA, ADDITIONAL: epigastric abdominal pain, Nausea with vomiting. (09:18 BDON) DISPOSITION &a-1R&a+25V*p+0X*k8282L*c202B*c15G*c2P*p-0X&a-25V&a+1R Name: Radha Prieto : 1990 F26 MedRec: [id number] AcctNum: [id number] Prepared: MonJul 29, 2016 10:12 by Interface Page 6 of 7 pMD [facility] EMERGENCY RECORD PATIENT: Disposition Type: Eloped, Disposition: Against Medical Advice, Condition: Good. (09:08 ) Disposition Transport: Ambulatory. (09:18 BDON) Patient left the department. (09:18 BDON) PRESCRIPTION No recorded prescriptions IMAGING (09:17 BDON) AMA/LWBS: Image captured from scanner. *SUPPLY CHARGE SHEET: Image captured from scanner. ADMIN DIGITAL SIGNATURE: BRADLEY Villatoro, Abigail. (09:18 BDON) MD Alexandra John. (10:00 ) Shi: BDON=BRADLEY Villatoro Bettye JOHE=MD Alexandra John &a-1R&a+25V*p+0X*w8892X*c202B*c15G*c2P*p-0X&a-25V&a+1R Name: Radha Prieto : 1990 F26 MedRec: [id number] AcctNum: [id number] Prepared: MonJul 29, 2016 10:12 by Interface Page 7 of 7 pMD MTDD
== END 2016-07-29 09:10 | disposition left against medical advice (07) ==
LOC: NAV ERS 08:26
DX: R10.13 Epigastric pain (principal); R11.2 Nausea with vomiting, unspecified; Z72.0 Tobacco use; Z79.899 Other long term (current) drug therapy

== ENCOUNTER 2016-11-07 10:58 | Emergency (ER) | payer OTHER | END 2016-11-07 12:00 | disposition home or self-care (01) | LOC: NAV ERS 10:58 | DX: K02.9 Dental caries, unspecified (principal); J45.909 Unspecified asthma, uncomplicated; F17.210 Nicotine dependence, cigarettes, uncomplicated ==

== ENCOUNTER 2017-04-02 07:19 | Emergency (ER) | payer OTHER ==
[2017-04-02 08:11] LABS: Bilirubin Negative (Negative); Blood, Urine Moderate (Negative); Clarity Clear (Clear); Glucose, Urine (Dipstick) Negative (Negative); Leukocyte Negative (Negative); Nitrite Negative (Negative); Protein, Urine (Dipstick) Negative (Neg-Trace); Specific Gravity, Urine 1.025 (1.005-1.030); Urobilinogen 0.2 mg/dL (0.2-1.0)
[2017-04-02 08:12] LABS: Bacteria/HPF None Seen HPF (None Seen); RBC/HPF 21-50 HPF (0-3); WBC/HPF None Seen HPF (0-3)
[2017-04-02 08:15] LABS: Pregu Control Background? CLEAR/WHITE (CLR/WHITE); Pregu Control Bar Appear? YES (CONTROL BAR); Specific Gravity 1.025 (1.002-1.036)
[2017-04-02 08:16] LABS: Pregnancy Test - Urine (BHCG) Negative (Negative)
[2017-04-02] MEDS ORDERED: Ketorolac Tromethamine 30 MG/ML VIAL ONE (08:16)
[2017-04-02] MEDS ORDERED: Lorazepam 2 MG/ML VIAL ONE (08:16)
[2017-04-02] MEDS ORDERED: Ondansetron HCl/PF 4 MG/2 ML Vial ONE (08:16)
[2017-04-02 08:31] LABS: #Basophils 0.1 thou/uL (0.0-0.2); #Eosinphils 0.1 thou/uL (0.0-0.7); #Lymphocytes 2.3 thou/uL (1.20-3.40); #Monocytes 0.5 thou/uL (0.11-0.59); #Neutrophils 5.7 thou/uL (1.40-6.50); %Eosinophils 0.6 % (0.0-10.0); %Lymphocytes 26.9 % (21.0-51.0); %Neutrophils 65.6 % (42.0-75.0); Hemoglobin 13.4 g/dL (12.0-16.0); Mean Corpuscular HGB CONC 32.5 g/dL (32.0-36.0); Mean Corpuscular Hemoglobin 30.1 pg (27.0-31.0); Mean Corpuscular Volume 92.9 fl (81.0-99.0); Mean Platelet Volume 6.8 fL (7.4-10.4); Platelet Count 245 thou/uL (130-400); RBC Distribution Width 11.8 % (11.5-14.5); Red Blood Cell (RBC) Count 4.43 mill/uL (4.20-5.40); White Blood Cell (WBC) Count 8.7 thou/uL (4.8-10.8)
[2017-04-02 08:51] LABS: ALT (SGPT) 20 U/L (8-55); AST (SGOT) 22 U/L (5-34); Albumin 4.5 g/dL (3.5-5.0); Alkaline Phosphatase 67 U/L (40-150); Anion Gap 14 mmol/L (10-20); BUN (Urea Nitrogen) 11 mg/dL (7.0-18.7); Bilirubin, Total 0.4 mg/dL (0.2-1.2); Calc. Creatinine Clearance 0 mL/min (70-130); Calcium 9.8 mg/dL (7.8-10.44); Carbon Dioxide 22 mmol/L (22-29); Chloride 107 mmol/L (98-107); Estimated GFR-MDRD Greater than 90; Globulin 3.1 g/dL (2.4-3.5); Glucose 98 mg/dL (70-105); Lipase 40 U/L (8-78); Potassium 4.1 mmol/L (3.5-5.1); Protein, Total 7.6 g/dL (6.0-8.3); Sodium 139 mmol/L (136-145)
== END 2017-04-02 09:22 | disposition home or self-care (01) ==
LOC: NAV ERS 07:19
DX: R10.9 Unspecified abdominal pain (principal); R11.2 Nausea with vomiting, unspecified; J45.909 Unspecified asthma, uncomplicated; F17.210 Nicotine dependence, cigarettes, uncomplicated
CPT/HCPCS: 36415; 80053; 81003; 81015; 81025; 83690; 85025; 96374; 96375; J1885; J2060; J2405

== ENCOUNTER 2017-11-17 03:46 | Emergency (ER) | payer OTHER ==
[2017-11-17 04:26] LABS: Bilirubin Negative (Negative); Blood, Urine Negative (Negative); Glucose, Urine (Dipstick) Negative (Negative); Leukocyte Negative (Negative); Nitrite Negative (Negative); Protein, Urine (Dipstick) 30 mg/dL (Neg-Trace); Specific Gravity, Urine 1.015 (1.005-1.030)
[2017-11-17] MEDS ORDERED: Fentanyl 100 MCG/2 ML VIAL ONE (04:26)
[2017-11-17] MEDS ORDERED: Ondansetron HCl/PF 4 MG/2 ML Vial ONE (04:26)
[2017-11-17] MEDS ORDERED: Sodium Chloride 0.9% 1,000 ML ONE (04:26)
[2017-11-17 04:27] LABS: #Basophils 0.1 thou/uL (0.0-0.2); #Lymphocytes 2.5 thou/uL (1.20-3.40); #Monocytes 0.7 thou/uL (0.11-0.59); #Neutrophils 7.8 thou/uL (1.40-6.50); %Basophils 0.9 % (0.0-1.0); %Eosinophils 0.3 % (0.0-10.0); %Lymphocytes 22.2 % (21.0-51.0); %Monocytes 6.4 % (0.0-10.0); %Neutrophils 70.2 % (42.0-75.0); Hemoglobin 14.9 g/dL (12.0-16.0); Mean Corpuscular HGB CONC 31.8 g/dL (32.0-36.0); Mean Corpuscular Hemoglobin 30.2 pg (27.0-31.0); Mean Corpuscular Volume 94.8 fl (81.0-99.0); Mean Platelet Volume 6.6 fL (7.4-10.4); Platelet Count 325 thou/uL (130-400); RBC Distribution Width 12.3 % (11.5-14.5); Red Blood Cell (RBC) Count 4.94 mill/uL (4.20-5.40); White Blood Cell (WBC) Count 11.2 thou/uL (4.8-10.8)
[2017-11-17 04:29] LABS: Clarity Hazy (Clear); pH, Urine 8.5 (5.0-9.0)
[2017-11-17 04:34] LABS: Bacteria/HPF 1+ HPF (None Seen); RBC/HPF None Seen HPF (0-3); WBC/HPF None Seen HPF (0-3)
[2017-11-17 04:35] LABS: Pregnancy Test - Urine (BHCG) Negative (Negative); Pregu Control Background? CLEAR/WHITE (CLR/WHITE); Pregu Control Bar Appear? YES (CONTROL BAR); Specific Gravity 1.015 (1.002-1.036)
[2017-11-17 04:41] LABS: Amphetamine Not Detected (NotDetected); Barbiturates Screen Not Detected (NotDetected); Benzodiazepine Screen Not Detected (NotDetected); Cocaine Metabolite Screen Not Detected (NotDetected); Medtox Control Line Valid? VALID (VALID); Methadone Not Detected (NotDetected); Methamphetamine Detected (NotDetected); Opiate Screen Not Detected (NotDetected); Oxycodone Screen Not Detected (NotDetected); Phencyclidine (PCP) Not Detected (NotDetected); THC/Cannabinoid Screen Detected (NotDetected); Tricyclic Screen Not Detected (NotDetected)
[2017-11-17 04:42] LABS: ALT (SGPT) 13 U/L (8-55); AST (SGOT) 17 U/L (5-34); Albumin 4.6 g/dL (3.5-5.0); Alkaline Phosphatase 87 U/L (40-150); Anion Gap 18 mmol/L (10-20); BUN (Urea Nitrogen) 6 mg/dL (7.0-18.7); Bilirubin, Total 0.7 mg/dL (0.2-1.2); Calc. Creatinine Clearance 0 mL/min (70-130); Calcium 10.6 mg/dL (7.8-10.44); Carbon Dioxide 20 mmol/L (22-29); Chloride 104 mmol/L (98-107); Estimated GFR-MDRD Greater than 90; Globulin 3.3 g/dL (2.4-3.5); Glucose 115 mg/dL (70-105); Potassium 4.4 mmol/L (3.5-5.1); Protein, Total 7.9 g/dL (6.0-8.3); Sodium 138 mmol/L (136-145)
[2017-11-17] MEDS ORDERED: Dicyclomine 20 MG TAB ONE (07:39)
[2017-11-17] MEDS ORDERED: Iopamidol 370 76% 100 ML VIAL ONE (09:00)
--- NOTE | 2017-11-17 12:08 | CT ---
PRELIMINARY REPORT/[facility]/EMERGENTY AFTER-HOURS PROCEDURE CT Abdomen and Pelvis With Intravenous Contrast EXAM DATE/TIME: Exam ordered 11/17/2017 6:39 AM CLINICAL HISTORY: 27 years old, female; Pain; Abdominal pain; Generalized TECHNIQUE: Axial computed tomography images of the abdomen and pelvis with intravenous contrast. All CT scans at this facility use one or more dose reduction techniques, viz.: automated exposure control; ma/kV adj ustment per patient size (including targeted exams where dose is matched to indication; i.e. head); or iterative reconstruction technique. Coronal and sagittal reformatted images were created an d reviewed. COMPARISON: No relevant prior studies available. FINDINGS: Lung bases: The visualized portions of the lung bases are normal. ABDOMEN: Liver: There are no focal liver lesions identified. Gallbladder and bile ducts: The gallbladder is normal. There is no evidence of biliary ductal dilatio n. No calcified stones. Pancreas: The pancreas appears normal. No ductal dilation. Spleen: The spleen is normal. Adrenals: The adrenal glands are normal. Kidneys and ureters: The kidneys appear normal. No hydronephrosis. Stomach and bowel: There are scattered areas of small bowel wall thickening, nonspecific and possibly representing under distention or enteritis. The stomach is normal. The colon is normal. PELVIS: Appendix: There are surgical clips in the RIGHT lower quadrant possibly representing prior appendecto my. The appendix is not identified. Bladder: The bladder is normal. Reproductive: The uterus is normal. ABDOMEN and PELVIS: Intraperitoneal space: Normal. No free air. No significant fluid collection. Bones/joints: No acute fracture. No dislocation. Soft tissues: Normal. Vasculature: Normal. No abdominal aortic aneurysm. Lymph nodes: Normal. No enlarged lymph nodes. IMPRESSION: There are scattered areas of small bowel wall thickening, nonspecific and possibly representing under distention or enteritis. Clinical correlation is advised. Thank you for allowing us to participate in the care of your patient. Dictated and Authenticated by: Ronen Perez MD 11/17/2017 7:22 AM Central Time ([place] & [place]) FINAL REPORT CT ABDOMEN AND PELVIS: I agree with the preliminary interpretation provided. 1. There are a few mildly prominent loops of small bowel that can be related to an underlying en teritis or could be related to accentuated distention from the enteric contrast. There is no luca e vidence of small bowel obstruction. A small amount of free fluid is present within the pelvis. 2. There is the suggestion of an involuting cyst within the left adnexa measuring 1.5 cm. There is some mild free fluid within the lower pelvis. Findings may reflect the sequelae of a ruptured cy st. Would recommend correlation with the clinical exam and consideration for a pelvic ultrasound for additional evaluation. 2. 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 This has been an interval development since the comparison examination dated 07/25/16. Orthopedic re ferral is recommended. 3. Findings were called to the [facility] Emergency Room at 7:54 a.m. on 11/17/17. CODE CR POS: [facility]
== END 2017-11-17 07:46 | disposition home or self-care (01) ==
LOC: NAV ERS 03:46
DX: F12.10 Cannabis abuse, uncomplicated (principal); F15.10 Other stimulant abuse, uncomplicated; R10.30 Lower abdominal pain, unspecified; J45.909 Unspecified asthma, uncomplicated; F17.210 Nicotine dependence, cigarettes, uncomplicated
CPT/HCPCS: 74177; 80053; 80306; 81003; 81015; 81025; 85025; 87086; 96361; 96374; 96375; 99406; J2405; J3010; J7050

== ENCOUNTER → 2017-12-19 | Emergency (ER) | payer OTHER ==
[~2017-12-19] MED LIST: Ibuprofen 200 MG TAB ONE; Ondansetron HCl/PF 4 MG/2 ML Vial ONE; Sodium Chloride 0.9% 1,000 ML ONE; Sodium Chloride 0.9% 100 ML ONE; cefTRIAXone\\ROCEPHIN 1 GM VIAL ONE
[2017-12-20 00:36] LABS: Bilirubin Negative (Negative); Blood, Urine Small (Negative); Clarity Slightly Cloudy (Clear); Glucose, Urine (Dipstick) Negative (Negative); Leukocyte Large (Negative); Nitrite Positive (Negative); Protein, Urine (Dipstick) Trace mg/dL (Neg-Trace); pH, Urine 5.5 (5.0-9.0)
[2017-12-20 00:41] LABS: Pregnancy Test - Urine (BHCG) Negative (Negative); Pregu Control Background? CLEAR/WHITE (CLR/WHITE); Pregu Control Bar Appear? YES (CONTROL BAR); Specific Gravity 1.013 (1.002-1.036)
[2017-12-20 01:14] LABS: Hemoglobin 11.8 g/dL (12.0-16.0); Mean Corpuscular HGB CONC 32.5 g/dL (32.0-36.0); Mean Corpuscular Hemoglobin 30.3 pg (27.0-31.0); Mean Corpuscular Volume 93.4 fl (81.0-99.0); Mean Platelet Volume 6.4 fL (7.4-10.4); Platelet Count 238 thou/uL (130-400); RBC Distribution Width 11.9 % (11.5-14.5); Red Blood Cell (RBC) Count 3.88 mill/uL (4.20-5.40); White Blood Cell (WBC) Count 16.3 thou/uL (4.8-10.8)
[2017-12-20 01:14] LABS: Bacteria/HPF 3+ HPF (None Seen); RBC/HPF 0-3 HPF (0-3); Squamous Epithelial 0-3 HPF (0-3); WBC/HPF 21-50 HPF (0-3)
[2017-12-20 01:29] LABS: ALT (SGPT) 11 U/L (8-55); AST (SGOT) 14 U/L (5-34); Albumin 3.8 g/dL (3.5-5.0); Alkaline Phosphatase 63 U/L (40-150); BUN (Urea Nitrogen) Less than 4 mg/dL (7.0-18.7); Bilirubin, Total 0.7 mg/dL (0.2-1.2); Calc. Creatinine Clearance 0 mL/min (70-130); Carbon Dioxide 23 mmol/L (22-29); Estimated GFR-MDRD Greater than 90; Globulin 2.8 g/dL (2.4-3.5); Glucose 117 mg/dL (70-105); Lipase 11 U/L (8-78); Protein, Total 6.6 g/dL (6.0-8.3)
[2017-12-20 01:34] LABS: Band 1 % (5-11); Lymphocytes 22 % (21-51); MDiff Complete? YES; Monocytes 5 % (0-10); Neutrophil 72 % (42-75); PLT Morphology Comment Appears Adequate; RBC Morphology Normal
[2017-12-20 01:48] LABS: Calcium 9.1 mg/dL (7.8-10.44); Chloride 104 mmol/L (98-107); Potassium 3.6 mmol/L (3.5-5.1); Sodium 136 mmol/L (136-145)
[2017-12-20 02:03] LABS: Anion Gap 13 mmol/L (10-20)
--- NOTE | 2017-12-20 10:49 | CT ---
PRELIMINARY REPORT/[facility]/EMERGENCY AFTER HOURS PROCEDURE: EXAM: CT Abdomen and Pelvis Without Intravenous Contrast CLINICAL HISTORY: 27 years old, female; Pain; Abdominal pain; Flank; Right; Prior surgery; Surgery date: 6+ months; Dyan alvarado type: Appendectomy; Patient HX: Pt. Reports body aches, fatigue, subj. F&c, headache, right side d abdominal pain since 0700 yesterday. Patient poorly able to characterize her pain, but states it is constant, and worse with activity. Vomited twice today, and also reports nasal congestion, and sore throat. Reports had hematuria last week, not now, but still urinating frequently. No diarrhea, rashes , ear pain, cough, or other symptoms. No ill contacts or recent travel. States her right sided abd. Inderjit n is the worst pain of her symptoms. R/O renal stone TECHNIQUE: Axial computed tomography images of the abdomen and pelvis without intravenous contrast. All CT scans at this facility use one or more dose reduction techniques, viz.: automated exposure control; ma/kV adjustment per patient size (including targeted exams where dose is matched to indication; i.e. head); or iterative reconstruction technique. Coronal and sagittal reformatted images were created and reviewed. COMPARISON: CT Abdomen Pelvis W Con 2017-11-17 06:39 FINDINGS: The lung bases are clear. Right kidney: No intrarenal calculus. Mild perinephric stranding/fluid. Borderline/mild right hydronephrosis and hydroureter. No definite ureteral calculus is identified. The above findings could be secondary to right pyelonephritis. Other possible etiologies for this appearance might include a recently passed or radiolucent right ur eteral calculus. Please correlate clinically. Left kidney: No intrarenal calculus, hydronephrosis or visible mass. No hydroureter or visible ureteral calculus. No definite gallbladder abnormality by CT. Ultrasound could be more sensitive for detecting gallstones, if clinically needed. No biliary tree dilation. Unremarkable appearance of the liver, spleen, adrenal glands, and pancreas. No free air, generalized ascites, or bowel distention. No retroperitoneal adenopathy. CT pelvis: Urinary bladder appears essentially unremarkable by CT. Reportedly, there has been prior appendectomy. There are no CT findings to strongly suggest diverticulitis. Moderate to large amount of cul-de-sac fluid. No definite adnexal cyst or mass by CT. IMPRESSION: Mild perinephric stranding/fluid. Borderline/mild right hydronephrosis and hydroureter. No definite right ureteral calculus. The above findings could be secondary to right pyelonephritis. Other possible etiologies for this appearance might include a recently passed or radiolucent right ur eteral calculus. See above. No free air or bowel distention. Unremarkable gallbladder by CT. Moderate to large amount of cul-de-sac fluid. No definite adnexal cyst or mass by CT. Other findings discussed above. Thank you for allowing us to participate in the care of your patient. Dictated and Authenticated by: Ronen Mccray MD 12/20/2017 2:38 AM Central Time ([place] & [place]) FINAL REPORT EMERGENCY AFTER HOURS CT ABDOMEN AND PELVIS NONCONTRAST: Date: 12/20/17 Time: 0110 hours HISTORY: Abdominal pain. COMPARISON: 11/17/17. FINDINGS: Findings agree with the preliminary report by Rajendra. There is mild right hydroureteronephrosis with sutton btle stranding around the right kidney. No stone is reliably demonstrated along the course of the rig ht ureter or within the urinary bladder. No right urinary calculus was apparent on CT from 1 month ag o. Clinical correlation regarding other signs and symptoms of right pyelonephritis is required. Other findings are stable. Small amount of free fluid within the pelvis. POS: [facility]
--- NOTE | 2017-12-20 10:51 | CT ---
PRELIMINARY REPORT/[facility]/EMERGENCY AFTER HOURS PROCEDURE: EXAM: CT Head Without Intravenous Contrast CLINICAL HISTORY: 27 years old, female; Pain; Headache; Headache not specified; Patient HX: Pt. Reports body aches, fat igue, subj. F&c, headache, right sided abdominal pain since 0700 yesterday. Patient poorly able to ch aracterize her pain, but states it is constant, and worse with activity. Vomited twice today, and als o reports nasal congestion, fever and sore throat. TECHNIQUE: Axial computed tomography images of the head/brain without intravenous contrast. All CT scans at this facility use one or more dose reduction techniques, viz.: automated exposure control; ma/kV adjustment per patient size (including targeted exams where dose is matched to indication; i.e. head) ; or iterative reconstruction technique. COMPARISON: No relevant prior studies available. FINDINGS: No definite acute skull fracture. Small amount of fluid in the left maxillary sinus. Included paranasal sinuses otherwise appear essentially clear. No acute intracranial hemorrhage or mass effect. Ventricle size is normal for age. No definite acute infarct by CT. IMPRESSION: No acute intracranial bleed or mass effect. Thank you for allowing us to participate in the care of your patient. Dictated and Authenticated by: Ronen Mccray MD 12/20/2017 2:21 AM Central Time ([place] & [place]) FINAL REPORT EMERGENCY AFTER HOURS CT BRAIN PERFORMED WITHOUT CONTRAST ENHANCEMENT: Date: 12/20/17 HISTORY: Headache. FINDINGS: Ventricular and cisternal system is within normal limits. There are no signs of intracerebral hemorrh age or extra-axial fluid collections. Mastoid air cells are clear. There is an air fluid level within the left maxillary sinus. IMPRESSION: 1. No acute intracranial abnormalities. 2. Air fluid level seen within the left maxillary sinus. This report is in agreement with the preliminary report issued by [facility]. POS: [facility]
== END ==
LOC: NAV ERS 23:54
DX: N10 Acute pyelonephritis (principal); D72.829 Elevated white blood cell count, unspecified; R51 Headache; J45.909 Unspecified asthma, uncomplicated; F17.210 Nicotine dependence, cigarettes, uncomplicated
CPT/HCPCS: 70450; 74176; 80053; 81003; 81015; 81025; 83605; 83690; 85025; 87077; 87086; 87186; 87804; 96361; 96365; 96375; J0696; J2405; J7050

== ENCOUNTER 2017-12-28 20:39 | Emergency (ER) | payer OTHER ==
[2017-12-28] MEDS ORDERED: Ibuprofen 200 MG TAB ONE (20:56)
[2017-12-28] MEDS ORDERED: Adacel (T-DAP) 0.5 ML VIAL ONE (20:56)
== END 2017-12-28 21:20 | disposition home or self-care (01) ==
LOC: NAV ERS 20:39
DX: S20.212A Contusion of left front wall of thorax, initial encounter (principal); S40.012A Contusion of left shoulder, initial encounter; S70.02XA Contusion of left hip, initial encounter; G44.309 Post-traumatic headache, unspecified, not intractable; J45.909 Unspecified asthma, uncomplicated; F17.210 Nicotine dependence, cigarettes, uncomplicated; V89.2XXA Person injured in unspecified motor-vehicle accident, traffic, initial encounter
CPT/HCPCS: 90471; 90715; 99406

== ENCOUNTER 2018-01-13 03:51 | Emergency (ER) | payer OTHER ==
[2018-01-13] MEDS ORDERED: AMOXicillin 250 MG CAP ONE (04:11)
[2018-01-13] MEDS ORDERED: Acetaminophen/Codeine 30-300mg Tablet ONE (04:11)
== END 2018-01-13 04:20 | disposition home or self-care (01) ==
LOC: NAV ERS 03:51
DX: K02.9 Dental caries, unspecified (principal); J45.909 Unspecified asthma, uncomplicated; F17.210 Nicotine dependence, cigarettes, uncomplicated
CPT/HCPCS: 99283

== ENCOUNTER 2018-02-13 06:57 | Emergency (ER) | payer OTHER | END 2018-02-13 07:49 | disposition left against medical advice (07) | LOC: NAV ERS 06:57 | DX: Z53.21 Procedure and treatment not carried out due to patient leaving prior to being seen by health care provider (principal) ==

== ENCOUNTER 2018-02-25 19:21 | Emergency (ER) | payer OTHER ==
[2018-02-25] MEDS ORDERED: Bupivacaine 0.5% 10 ML VIAL ONE (19:35)
== END 2018-02-25 20:00 | disposition home or self-care (01) ==
LOC: NAV ERS 19:21
DX: K04.7 Periapical abscess without sinus (principal); J45.909 Unspecified asthma, uncomplicated; F17.210 Nicotine dependence, cigarettes, uncomplicated; Z79.891 Long term (current) use of opiate analgesic; Z79.1 Long term (current) use of non-steroidal anti-inflammatories (NSAID)
CPT/HCPCS: 99282; J3490

== ENCOUNTER 2018-04-20 04:36 | Emergency (ER) | payer OTHER, SELFPAY ==
[2018-04-20] MEDS ORDERED: Ketorolac Tromethamine 60 MG/2 ML VIAL ONE (05:01)
[2018-04-20] MEDS ORDERED: Cephalexin 250 MG CAP ONE (05:03)
[2018-04-20] MEDS ORDERED: Ondansetron ODT 4 MG TAB ONE (05:07)
== END 2018-04-20 05:25 | disposition home or self-care (01) ==
LOC: NAV ERS 04:36
DX: K02.9 Dental caries, unspecified (principal); F17.210 Nicotine dependence, cigarettes, uncomplicated
CPT/HCPCS: 96372; J1885; Q0162

== ENCOUNTER 2018-04-28 20:23 | Emergency (ER) | payer SELFPAY ==
[2018-04-28] MEDS ORDERED: Ketorolac Tromethamine 60 MG/2 ML VIAL ONE (20:47)
[2018-04-28] MEDS ORDERED: Clindamycin 150 MG CAP ONE (20:47)
[2018-04-28] MEDS ORDERED: Acetaminophen/Codeine 30-300mg Tablet ONE (20:49)
== END 2018-04-28 21:00 | disposition home or self-care (01) ==
LOC: NAV ERS 20:23
DX: K02.9 Dental caries, unspecified (principal); J45.909 Unspecified asthma, uncomplicated; F17.210 Nicotine dependence, cigarettes, uncomplicated; Z79.899 Other long term (current) drug therapy
CPT/HCPCS: 96372; J1885

== ENCOUNTER 2018-06-18 18:20 | Emergency (ER) | payer SELFPAY ==
[2018-06-18] MEDS ORDERED: Ondansetron ODT 4 MG TAB ONE (18:46)
[2018-06-18] MEDS ORDERED: Clindamycin 150 MG CAP ONE (18:46)
== END 2018-06-18 18:54 | disposition home or self-care (01) ==
LOC: NAV ERS 18:20
DX: K04.7 Periapical abscess without sinus (principal); J45.909 Unspecified asthma, uncomplicated; F17.210 Nicotine dependence, cigarettes, uncomplicated
CPT/HCPCS: 99282; Q0162

== ENCOUNTER 2018-07-06 00:43 | Emergency (ER) | payer SELFPAY ==
[2018-07-06] MEDS ORDERED: Bupivacaine 0.5% 10 ML VIAL ONE (01:06)
== END 2018-07-06 01:25 | disposition home or self-care (01) ==
LOC: NAV ERS 00:43
DX: K08.89 Other specified disorders of teeth and supporting structures (principal); J45.909 Unspecified asthma, uncomplicated; F17.210 Nicotine dependence, cigarettes, uncomplicated
CPT/HCPCS: 96372; J3490

== ENCOUNTER 2018-11-11 22:37 | Emergency (ER) | payer MEDICAID, SELFPAY ==
[2018-11-11] MEDS ORDERED: Ondansetron ODT 4 MG TAB ONE (23:04)
[2018-11-11 23:27] LABS: Eosinophils 2 % (0-10); Hemoglobin 12.8 g/dL (12.0-16.0); Lymphocytes 62 % (21-51); MDiff Complete? YES; Mean Corpuscular HGB CONC 32.9 g/dL (32.0-36.0); Mean Corpuscular Hemoglobin 30.2 pg (27.0-31.0); Mean Corpuscular Volume 91.8 fL (78.0-98.0); Monocytes 4 % (0-10); Neutrophil 32 % (42-75); Platelet Count 308 thou/uL (130-400); Platelet Morphology Comment Appears Adequate; RBC Distribution Width 11.9 % (11.5-14.5); RBC Morphology Normal; Red Blood Cell (RBC) Count 4.22 mill/uL (4.20-5.40); White Blood Cell (WBC) Count 6.7 thou/uL (4.8-10.8)
[2018-11-11 23:37] LABS: ALT (SGPT) 17 U/L (8-55); AST (SGOT) 17 U/L (5-34); Albumin 4.3 g/dL (3.5-5.0); Alkaline Phosphatase 60 U/L (40-150); Anion Gap 16 mmol/L (10-20); BUN (Urea Nitrogen) 7 mg/dL (7.0-18.7); Bilirubin, Total 0.4 mg/dL (0.2-1.2); Calc. Creatinine Clearance 0 mL/min (70-130); Calcium 10.5 mg/dL (7.8-10.44); Carbon Dioxide 22 mmol/L (22-29); Chloride 102 mmol/L (98-107); Estimated GFR-MDRD Greater than 90; Globulin 3.2 g/dL (2.4-3.5); Glucose 85 mg/dL (70-105); Lipase 18 U/L (8-78); Protein, Total 7.5 g/dL (6.0-8.3); Sodium 136 mmol/L (136-145)
== END 2018-11-11 23:44 | disposition home or self-care (01) ==
LOC: NAV ERS 22:37
DX: O21.9 Vomiting of pregnancy, unspecified (principal); O99.89 Other specified diseases and conditions complicating pregnancy, childbirth and the puerperium; R10.9 Unspecified abdominal pain; O99.511 Diseases of the respiratory system complicating pregnancy, first trimester; J45.909 Unspecified asthma, uncomplicated; O99.331 Smoking (tobacco) complicating pregnancy, first trimester; Z3A.09 9 weeks gestation of pregnancy
CPT/HCPCS: 36415; 80053; 83690; 85025; 99284; Q0162

== ENCOUNTER 2018-11-12 08:02 | Emergency (ER) | payer MEDICAID ==
[2018-11-12] MEDS ORDERED: Sodium Chloride 0.9% 1,000 ML ONE (08:21)
[2018-11-12] MEDS ORDERED: Ondansetron PF 4 MG/2 ML Vial ONE ×2 (08:21→09:03)
[2018-11-12 08:53] LABS: Bilirubin Negative (Negative); Blood, Urine Negative (Negative); Clarity Slightly Cloudy (Clear); Glucose, Urine (Dipstick) Negative (Negative); Leukocyte Negative (Negative); Nitrite Negative (Negative); Protein, Urine (Dipstick) Trace mg/dL (Neg-Trace); Urobilinogen 0.2 mg/dL (0.2-1.0)
[2018-11-12 09:00] LABS: #Basophils 0.1 thou/uL (0.0-0.2); #Eosinphils 0.1 thou/uL (0.0-0.7); #Lymphocytes 2.7 thou/uL (1.20-3.40); #Monocytes 0.4 thou/uL (0.11-0.59); %Basophils 1.5 % (0.0-1.0); %Monocytes 7.1 % (0.0-10.0); %Neutrophils 38.6 % (42.0-75.0); Mean Corpuscular HGB CONC 32.3 g/dL (32.0-36.0); Mean Corpuscular Hemoglobin 29.8 pg (27.0-31.0); Mean Corpuscular Volume 92.1 fL (78.0-98.0); Mean Platelet Volume 5.9 fL (7.4-10.4); Platelet Count 316 thou/uL (130-400); RBC Distribution Width 11.6 % (11.5-14.5); Red Blood Cell (RBC) Count 4.36 mill/uL (4.20-5.40); White Blood Cell (WBC) Count 5.3 thou/uL (4.8-10.8)
[2018-11-12 09:05] LABS: ALT (SGPT) 18 U/L (8-55); AST (SGOT) 18 U/L (5-34); Albumin 4.5 g/dL (3.5-5.0); Alkaline Phosphatase 66 U/L (40-150); Anion Gap 15 mmol/L (10-20); BUN (Urea Nitrogen) 7 mg/dL (7.0-18.7); Bilirubin, Total 0.5 mg/dL (0.2-1.2); Calc. Creatinine Clearance 0 mL/min (70-130); Calcium 10.9 mg/dL (7.8-10.44); Carbon Dioxide 23 mmol/L (22-29); Chloride 103 mmol/L (98-107); Estimated GFR-MDRD Greater than 90; Globulin 3.2 g/dL (2.4-3.5); Glucose 85 mg/dL (70-105); Lipase 16 U/L (8-78); Potassium 3.9 mmol/L (3.5-5.1); Protein, Total 7.7 g/dL (6.0-8.3); Sodium 137 mmol/L (136-145)
== END 2018-11-12 10:05 | disposition home or self-care (01) ==
LOC: NAV ERS 08:02
DX: O21.0 Mild hyperemesis gravidarum (principal); O99.89 Other specified diseases and conditions complicating pregnancy, childbirth and the puerperium; R10.10 Upper abdominal pain, unspecified; O99.331 Smoking (tobacco) complicating pregnancy, first trimester; Z3A.09 9 weeks gestation of pregnancy
CPT/HCPCS: 80053; 81003; 83690; 85025; 96361; 96374; J2405; J7050

== ENCOUNTER 2018-11-13 04:37 | Emergency (ER) | payer MEDICAID, OTHER ==
[2018-11-13] MEDS ORDERED: diphenhydrAMINE 25 MG CAP ONE (05:19)
[2018-11-13] MEDS ORDERED: Metoclopramide HCl 10 MG TAB ONE (05:19)
[2018-11-13] MEDS ORDERED: Ondansetron ODT 4 MG TAB ONE (05:19)
[2018-11-13 06:05] LABS: #Basophils 0.1 thou/uL (0.0-0.2); #Eosinphils 0.1 thou/uL (0.0-0.7); #Lymphocytes 3.3 thou/uL (1.20-3.40); #Monocytes 0.5 thou/uL (0.11-0.59); #Neutrophils 3.9 thou/uL (1.40-6.50); %Basophils 0.8 % (0.0-1.0); %Eosinophils 0.7 % (0.0-10.0); %Lymphocytes 42.6 % (21.0-51.0); %Neutrophils 49.9 % (42.0-75.0); Hemoglobin 12.5 g/dL (12.0-16.0); Mean Corpuscular HGB CONC 32.8 g/dL (32.0-36.0); Mean Corpuscular Volume 91.7 fL (78.0-98.0); Mean Platelet Volume 6.3 fL (7.4-10.4); Platelet Count 316 thou/uL (130-400); RBC Distribution Width 11.7 % (11.5-14.5); Red Blood Cell (RBC) Count 4.18 mill/uL (4.20-5.40); White Blood Cell (WBC) Count 7.7 thou/uL (4.8-10.8)
[2018-11-13] MEDS ORDERED: Fentanyl 100 MCG/2 ML VIAL ONE (06:08)
[2018-11-13 06:27] LABS: ALT (SGPT) 22 U/L (8-55); AST (SGOT) 28 U/L (5-34); Albumin 4.4 g/dL (3.5-5.0); Alkaline Phosphatase 63 U/L (40-150); Anion Gap 17 mmol/L (10-20); BUN (Urea Nitrogen) 7 mg/dL (7.0-18.7); Bilirubin, Total 0.4 mg/dL (0.2-1.2); Calc. Creatinine Clearance 0 mL/min (70-130); Calcium 10.6 mg/dL (7.8-10.44); Carbon Dioxide 21 mmol/L (22-29); Chloride 103 mmol/L (98-107); Estimated GFR-MDRD Greater than 90; Globulin 3.1 g/dL (2.4-3.5); Glucose 89 mg/dL (70-105); Lipase 24 U/L (8-78); Protein, Total 7.5 g/dL (6.0-8.3); Sodium 137 mmol/L (136-145)
== END 2018-11-13 06:25 | disposition short-term general hospital (02) ==
LOC: NAV ERS 04:37
DX: O21.9 Vomiting of pregnancy, unspecified (principal); O99.89 Other specified diseases and conditions complicating pregnancy, childbirth and the puerperium; R10.30 Lower abdominal pain, unspecified; O99.331 Smoking (tobacco) complicating pregnancy, first trimester; F17.210 Nicotine dependence, cigarettes, uncomplicated; Z3A.09 9 weeks gestation of pregnancy
CPT/HCPCS: 36415; 80053; 83690; 84702; 85025; 96372; 96374; J0500; J3010; J8597; Q0162; Q0163

== ENCOUNTER 2018-11-24 07:01 | Emergency (ER) | payer OTHER ==
[2018-11-24] MEDS ORDERED: Ondansetron ODT 4 MG TAB ONE (07:49)
[2018-11-24 07:59] LABS: Bilirubin Negative (Negative); Blood, Urine Negative (Negative); Clarity Clear (Clear); Glucose, Urine (Dipstick) Negative (Negative); Leukocyte Negative (Negative); Nitrite Negative (Negative); Protein, Urine (Dipstick) Trace mg/dL (Neg-Trace); Specific Gravity, Urine 1.015 (1.005-1.030); pH, Urine 8.5 (5.0-9.0)
== END 2018-11-24 08:18 | disposition home or self-care (01) ==
LOC: NAV ERS 07:01
DX: O21.9 Vomiting of pregnancy, unspecified (principal); O99.331 Smoking (tobacco) complicating pregnancy, first trimester; F17.210 Nicotine dependence, cigarettes, uncomplicated; Z3A.12 12 weeks gestation of pregnancy
CPT/HCPCS: 36416; 81003; 99284; Q0162

== ENCOUNTER 2018-12-02 10:41 | Emergency (ER) | payer OTHER, SELFPAY ==
[2018-12-02] MEDS ORDERED: Bupivacaine 0.5% 10 ML VIAL ONE (11:12)
[2018-12-02] MEDS ORDERED: Penicillin V Potassium 250 MG TAB ONE (11:41)
== END 2018-12-02 11:45 | disposition home or self-care (01) ==
LOC: NAV ERS 10:41
DX: O99.611 Diseases of the digestive system complicating pregnancy, first trimester (principal); K04.7 Periapical abscess without sinus; O99.52 Diseases of the respiratory system complicating childbirth; J45.909 Unspecified asthma, uncomplicated; Z3A.14 14 weeks gestation of pregnancy
CPT/HCPCS: 64400; J3490

== ENCOUNTER 2018-12-08 22:42 | Emergency (ER) | payer OTHER | END 2018-12-09 01:08 | disposition short-term general hospital (02) | LOC: NAV ERS 22:42 | DX: O26.852 Spotting complicating pregnancy, second trimester (principal); O99.52 Diseases of the respiratory system complicating childbirth; J45.909 Unspecified asthma, uncomplicated; Z3A.14 14 weeks gestation of pregnancy | CPT/HCPCS: 99284 ==

== ENCOUNTER 2018-12-10 15:45 | Emergency (ER) | payer OTHER ==
[2018-12-10] MEDS ORDERED: Ondansetron ODT 4 MG TAB ONE (16:04)
== END 2018-12-10 16:24 | disposition home or self-care (01) ==
LOC: NAV ERS 15:45
DX: O21.0 Mild hyperemesis gravidarum (principal); O99.512 Diseases of the respiratory system complicating pregnancy, second trimester; Z3A.14 14 weeks gestation of pregnancy
CPT/HCPCS: 99283; Q0162

== ENCOUNTER 2018-12-22 06:40 | Emergency (ER) | payer OTHER | END 2018-12-22 07:27 | disposition home or self-care (01) | LOC: NAV ERS 06:40 | DX: O21.0 Mild hyperemesis gravidarum (principal); O99.512 Diseases of the respiratory system complicating pregnancy, second trimester; Z3A.16 16 weeks gestation of pregnancy; J45.909 Unspecified asthma, uncomplicated; Z79.899 Other long term (current) drug therapy | CPT/HCPCS: 99283 ==

== ENCOUNTER 2019-01-04 05:59 | Emergency (ER) | payer OTHER ==
[2019-01-04] MEDS ORDERED: Lidocaine Viscous Sol 2% 15 ml UD Cup ONE (06:41)
[2019-01-04] MEDS ORDERED: Mag-Al Plus 1200 MG/1200 MG/120 MG/30 ML UDCUP ONE (06:41)
[2019-01-04] MEDS ORDERED: Sodium Chloride 0.9% 1,000 ML ONE (06:41)
[2019-01-04 06:50] LABS: Bilirubin Negative (Negative); Blood, Urine Negative (Negative); Clarity Clear (Clear); Glucose, Urine (Dipstick) Negative (Negative); Nitrite Negative (Negative); Protein, Urine (Dipstick) Negative (Neg-Trace); Specific Gravity, Urine 1.015 (1.005-1.030); Urobilinogen 0.2 mg/dL (0.2-1.0); pH, Urine 8.5 (5.0-9.0)
[2019-01-04 06:51] LABS: #Basophils 0.1 thou/uL (0.0-0.2); #Lymphocytes 2.3 thou/uL (1.20-3.40); #Monocytes 0.2 thou/uL (0.11-0.59); #Neutrophils 4.1 thou/uL (1.40-6.50); %Basophils 1.1 % (0.0-1.0); %Eosinophils 0.7 % (0.0-10.0); %Lymphocytes 34.8 % (21.0-51.0); %Monocytes 3.1 % (0.0-10.0); %Neutrophils 60.3 % (42.0-75.0); Hemoglobin 11.9 g/dL (12.0-16.0); Mean Corpuscular HGB CONC 33.4 g/dL (32.0-36.0); Mean Corpuscular Hemoglobin 30.6 pg (27.0-31.0); Mean Corpuscular Volume 91.8 fL (78.0-98.0); Mean Platelet Volume 5.9 fL (7.4-10.4); Platelet Count 268 thou/uL (130-400); RBC Distribution Width 11.9 % (11.5-14.5); Red Blood Cell (RBC) Count 3.89 mill/uL (4.20-5.40); White Blood Cell (WBC) Count 6.7 thou/uL (4.8-10.8)
[2019-01-04 06:53] LABS: Leukocyte Negative (Negative)
[2019-01-04 07:03] LABS: ALT (SGPT) 23 U/L (8-55); AST (SGOT) 22 U/L (5-34); Albumin 4.1 g/dL (3.5-5.0); Alkaline Phosphatase 50 U/L (40-150); Anion Gap 15 mmol/L (10-20); BUN (Urea Nitrogen) 8 mg/dL (7.0-18.7); Bilirubin, Total 0.4 mg/dL (0.2-1.2); Calc. Creatinine Clearance 0 mL/min (70-130); Calcium 10.5 mg/dL (7.8-10.44); Carbon Dioxide 23 mmol/L (22-29); Chloride 104 mmol/L (98-107); Estimated GFR-MDRD Greater than 90; Globulin 3.3 g/dL (2.4-3.5); Glucose 85 mg/dL (70-105); Lipase 23 U/L (8-78); Potassium 3.9 mmol/L (3.5-5.1); Protein, Total 7.4 g/dL (6.0-8.3); Sodium 138 mmol/L (136-145)
== END 2019-01-04 07:49 | disposition home or self-care (01) ==
LOC: NAV ERS 05:59
DX: O21.9 Vomiting of pregnancy, unspecified (principal); O99.612 Diseases of the digestive system complicating pregnancy, second trimester; Z3A.18 18 weeks gestation of pregnancy
CPT/HCPCS: 80053; 81003; 83690; 85025; 96360; J7050

== ENCOUNTER 2019-01-23 10:18 | Emergency (ER) | payer OTHER ==
[2019-01-23] MEDS ORDERED: Sodium Chloride 0.9% 1,000 ML ONE (11:06)
[2019-01-23] MEDS ORDERED: Magnesium Citrate 300 ML BOT ONE (11:06)
[2019-01-23] MEDS ORDERED: Ondansetron ODT 4 MG TAB ONE (11:06)
[2019-01-23 11:44] LABS: Anion Gap 14 mmol/L (10-20); BUN (Urea Nitrogen) 5 mg/dL (7.0-18.7); Calc. Creatinine Clearance 0 mL/min (70-130); Calcium 9.8 mg/dL (7.8-10.44); Carbon Dioxide 21 mmol/L (22-29); Chloride 103 mmol/L (98-107); Estimated GFR-MDRD Greater than 90; Glucose 81 mg/dL (70-105); Potassium 3.8 mmol/L (3.5-5.1); Sodium 134 mmol/L (136-145)
[2019-01-23 12:04] LABS: Bilirubin Negative (Negative); Blood, Urine Negative (Negative); Clarity Clear (Clear); Glucose, Urine (Dipstick) Negative (Negative); Leukocyte Negative (Negative); Nitrite Negative (Negative); Protein, Urine (Dipstick) Negative (Neg-Trace); Urobilinogen 0.2 mg/dL (Less than 2)
== END 2019-01-23 12:32 | disposition home or self-care (01) ==
LOC: NAV ERS 10:18
DX: O99.612 Diseases of the digestive system complicating pregnancy, second trimester (principal); K59.00 Constipation, unspecified; O99.512 Diseases of the respiratory system complicating pregnancy, second trimester; J45.909 Unspecified asthma, uncomplicated; Z3A.20 20 weeks gestation of pregnancy
CPT/HCPCS: 80048; 81003; 96360; J7050; Q0162

== ENCOUNTER 2019-02-19 01:04 | Emergency (ER) | payer OTHER | END 2019-02-19 02:00 | disposition home or self-care (01) | LOC: NAV ERS 01:04 | DX: O99.612 Diseases of the digestive system complicating pregnancy, second trimester (principal); K02.9 Dental caries, unspecified; K59.00 Constipation, unspecified; R11.0 Nausea; O99.512 Diseases of the respiratory system complicating pregnancy, second trimester; J45.909 Unspecified asthma, uncomplicated; Z3A.24 24 weeks gestation of pregnancy | CPT/HCPCS: 99281 ==

== ENCOUNTER 2019-02-28 09:31 | Emergency (ER) | payer OTHER ==
[2019-02-28] MEDS ORDERED: Ondansetron ODT 4 MG TAB ONE (09:58)
== END 2019-02-28 10:07 | disposition home or self-care (01) ==
LOC: NAV ERS 09:31
DX: O21.8 Other vomiting complicating pregnancy (principal); O99.89 Other specified diseases and conditions complicating pregnancy, childbirth and the puerperium; R19.7 Diarrhea, unspecified; O99.512 Diseases of the respiratory system complicating pregnancy, second trimester; J45.909 Unspecified asthma, uncomplicated; Z3A.25 25 weeks gestation of pregnancy; Z79.899 Other long term (current) drug therapy
CPT/HCPCS: 99283; Q0162

== ENCOUNTER 2019-04-24 00:01 | Emergency (ER) | payer OTHER ==
[2019-04-24] MEDS ORDERED: Lidocaine 1% (PF) 30 ML VIAL ONE (00:34)
== END 2019-04-24 01:00 | disposition home or self-care (01) ==
LOC: NAV ERS 00:01
DX: O99.613 Diseases of the digestive system complicating pregnancy, third trimester (principal); K02.9 Dental caries, unspecified; O99.513 Diseases of the respiratory system complicating pregnancy, third trimester; J45.909 Unspecified asthma, uncomplicated; Z3A.33 33 weeks gestation of pregnancy
CPT/HCPCS: 64400; J2001

== ENCOUNTER 2019-06-22 17:18 | Emergency (ER) | payer OTHER ==
[2019-06-22] MEDS ORDERED: Ibuprofen 800 MG TAB ONE (17:43)
== END 2019-06-22 17:50 | disposition home or self-care (01) ==
LOC: NAV ERS 17:18
DX: K02.9 Dental caries, unspecified (principal); I10 Essential (primary) hypertension; J45.909 Unspecified asthma, uncomplicated
CPT/HCPCS: 99282

== ENCOUNTER 2019-07-14 08:34 | Emergency (ER) | payer OTHER | END 2019-07-14 09:20 | disposition home or self-care (01) | LOC: NAV ERS 08:34 | DX: K11.20 Sialoadenitis, unspecified (principal); I10 Essential (primary) hypertension; J45.909 Unspecified asthma, uncomplicated; F17.210 Nicotine dependence, cigarettes, uncomplicated | CPT/HCPCS: 99283 ==

== ENCOUNTER → 2019-08-10 | Emergency (ER) | payer OTHER | LOC: NAV ERS 13:05 | DX: J11.1 Influenza due to unidentified influenza virus with other respiratory manifestations (principal); I10 Essential (primary) hypertension; F17.210 Nicotine dependence, cigarettes, uncomplicated; Z79.899 Other long term (current) drug therapy | CPT/HCPCS: 87804; 99283 ==

== ENCOUNTER 2019-08-16 02:00 | Emergency (ER) | payer OTHER | END 2019-08-16 02:35 | disposition home or self-care (01) | LOC: NAV ERS 02:00 | DX: R68.84 Jaw pain (principal); I10 Essential (primary) hypertension; J45.909 Unspecified asthma, uncomplicated; F17.210 Nicotine dependence, cigarettes, uncomplicated; Z71.6 Tobacco abuse counseling; Z79.899 Other long term (current) drug therapy | CPT/HCPCS: 99406 ==

== ENCOUNTER 2019-10-02 18:52 | Emergency (ER) | payer OTHER, SELFPAY | END 2019-10-02 19:46 | disposition home or self-care (01) | LOC: NAV ERS 18:52 | DX: S90.562A Insect bite (nonvenomous), left ankle, initial encounter (principal); S90.561A Insect bite (nonvenomous), right ankle, initial encounter; S80.862A Insect bite (nonvenomous), left lower leg, initial encounter; S80.861A Insect bite (nonvenomous), right lower leg, initial encounter; K02.9 Dental caries, unspecified; F17.210 Nicotine dependence, cigarettes, uncomplicated; W57.XXXA Bitten or stung by nonvenomous insect and other nonvenomous arthropods, initial encounter | CPT/HCPCS: 99281 ==

== ENCOUNTER 2020-01-23 14:26 | Emergency (ER) | payer OTHER ==
[2020-01-23 15:46] LABS: Anion Gap 13 mmol/L (10-20); BUN (Urea Nitrogen) 6 mg/dL (7.0-18.7); Calc. Creatinine Clearance 0 mL/min (70-130); Calcium 9.1 mg/dL (7.8-10.44); Carbon Dioxide 21 mmol/L (22-29); Chloride 104 mmol/L (98-107); Estimated GFR-MDRD Greater than 90; Glucose 70 mg/dL (70-105); Potassium 3.7 mmol/L (3.5-5.1); Sodium 134 mmol/L (136-145)
[2020-01-23 15:48] LABS: #Basophils 0.1 thou/uL (0.0-0.2); #Lymphocytes 1.9 thou/uL (1.20-3.40); #Monocytes 0.6 thou/uL (0.11-0.59); #Neutrophils 4.9 thou/uL (1.40-6.50); %Basophils 1.6 % (0.0-1.0); %Eosinophils 0.6 % (0.0-10.0); %Lymphocytes 25.9 % (21.0-51.0); %Monocytes 7.4 % (0.0-10.0); %Neutrophils 64.6 % (42.0-75.0); Hemoglobin 10.6 g/dL (12.0-16.0); Mean Corpuscular HGB CONC 32.1 g/dL (32.0-36.0); Mean Corpuscular Hemoglobin 30.8 pg (27.0-31.0); Mean Corpuscular Volume 96.1 fL (78.0-98.0); Mean Platelet Volume 6.6 fL (7.4-10.4); Platelet Count 249 thou/uL (130-400); RBC Distribution Width 12.4 % (11.5-14.5); Red Blood Cell (RBC) Count 3.45 mill/uL (4.20-5.40); White Blood Cell (WBC) Count 7.5 thou/uL (4.8-10.8)
[2020-01-23 15:52] LABS: Bilirubin Negative (Negative); Blood, Urine Negative (Negative); Clarity Clear (Clear); Glucose, Urine (Dipstick) Negative (Negative); Ketone, Urine Negative (Negative); Leukocyte Negative (Negative); Nitrite Negative (Negative); Protein, Urine (Dipstick) Negative (Neg-Trace); Specific Gravity, Urine 1.025 (1.005-1.030)
[2020-01-23] MEDS ORDERED: Lidocaine 1% (PF) 30 ML VIAL ONE (16:10)
[2020-01-23] MEDS ORDERED: cefTRIAXone\\ROCEPHIN 250 MG VIAL ONE (16:10)
[2020-01-23] MEDS ORDERED: Azithromycin 250 MG TAB ONE (16:10)
[2020-01-24 14:44] LABS: SARS-CoV-2 MS2 Positive; SARS-CoV-2 N Gene Negative; SARS-CoV-2 S Gene Negative; SARS-CoV-2 orf1ab Negative
[2020-01-26 16:16] LABS: Chlamydia by PCR Not Detected (NotDetected); GC by PCR Not Detected (NotDetected)
== END 2020-01-23 16:35 | disposition home or self-care (01) ==
LOC: NAV ERS 14:26
DX: O99.89 Other specified diseases and conditions complicating pregnancy, childbirth and the puerperium (principal); R10.2 Pelvic and perineal pain; I10 Essential (primary) hypertension; F17.210 Nicotine dependence, cigarettes, uncomplicated; Z79.899 Other long term (current) drug therapy; Z3A.22 22 weeks gestation of pregnancy
CPT/HCPCS: 51701; 80048; 81003; 85025; 87480; 87491; 87510; 87591; 87635; 87660; 96372; J0696; J2001; U0003